=== PATIENT | male | born 1940 | race Caucasian/White ===

== ENCOUNTER 2016-12-11 05:43 | Observation (INO) | payer OTHER ==
[2016-12-05 09:59] LABS: % IMMATURE GRANULYOCYTES 0.4 % (0.0-1.1); ABSOLUTE IMMATURE GRANULOCYTES 0.02 10^3/uL (0.00-0.10); ADD DIFF? NO; ADD MORPH? NO; ADD SCAN? NO; ATYPICAL LYMPHOCYTE FLAG 10 (0-99); FRAGMENT RBC FLAG 0 (0-99); HEMOGLOBIN 16.1 g/dL (13.7-17.5); LEFT SHIFT FLG 0 (0-99); LIPEMIA HEMOLYSIS FLAG 90 (0-99); MEAN CELL HEMOGLOBIN 31.7 pg (27.9-34.1); MEAN CELL VOLUME 90.6 fL (81.5-99.8); MEAN PLATELET VOLUME 9.8 fL (8.7-11.7); PLATELET CLUMPS FLAG 0 (0-99); PLATELET COUNT 209 10^3/uL (150-400); RED BLOOD CELL COUNT 5.08 10^6/uL (4.40-6.38); RED CELL DISTRIBUTION WIDTH 13.5 % (11.5-15.2)
[2016-12-11] MEDS ORDERED: LIDOCAINE 1% 5 ML SDV ONE (05:59)
[2016-12-11] MEDS ORDERED: DEXAMETHASONE 10 MG/ML VIAL ONE (06:27)
[2016-12-11] MEDS ORDERED: BUPIVACAINE/EPI 0.25% 30 ML SDV ONE ×2 (06:56→09:29)
[2016-12-11] MEDS ORDERED: THROMBIN (RECOMBINANT) 5,000 UNIT VIAL TP ONE (06:56)
[2016-12-11] MEDS ORDERED: BACITRACIN 50,000 UNITS/10 ML SYR IRR ONE (06:56)
[2016-12-11] MEDS ORDERED: CEFAZOLIN 2 GM/DEXTROSE/100 ML BAG IV ONE (07:05)
[2016-12-11] MEDS ORDERED: MIDAZOLAM 2 MG/2 ML VIAL ONE (07:07)
[2016-12-11] MEDS ORDERED: fentaNYL 100 MCG/2 ML INJ ONE ×2 (07:23→10:31)
[2016-12-11] MEDS ORDERED: KETAMINE 100 MG/10 ML SYR IVP ONE (07:23)
[2016-12-11] MEDS ORDERED: REMIFENTANIL HCL 1 MG VIAL ONE (07:23)
[2016-12-11] MEDS ORDERED: PROPOFOL/EMULSION 500 MG/50 ML BOTTLE IV ONE (07:23)
[2016-12-11] MEDS ORDERED: PROPOFOL 200 MG/20 ML VIAL ONE (07:23)
[2016-12-11] MEDS ORDERED: SUCCINYLCHOLINE CHLORIDE*ANESTHESIA ONLY*200 MG/10 ML SYR IVP ONE (07:24)
[2016-12-11] MEDS ORDERED: DEXAMETHASONE 4 MG/ML VIAL ONE (07:24)
[2016-12-11] MEDS ORDERED: LIDOCAINE 2% 5 ML SDV ONE (07:24)
[2016-12-11] MEDS ORDERED: PHENYLEPHRINE 10 MG/ML SDV ONE (08:03)
[2016-12-11] MEDS ORDERED: epHEDrine SULFATE 10 MG/ML SYR ONE (08:09)
--- NOTE | 2016-12-11 09:53 | POSTOPPROG ---
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
--- NOTE | 2016-12-11 09:58 | NEUSURGPN ---
Date of Surgery: 12/11/16 Post Op Day: 0 Assessment/Plan: POST OP CHECK: doing well s/p C3-5 ACDF Plan: Soft collar. PAWAN to bulb suction advance per protocol DC home 4 hours post op if tolerating PO, Urinating, ambulating and with good oral pain control Subjective: lying in bed, comfortable, awake and alert. Objective: Vitals: BP: 117/76 HR 104 O2:97% Neuro MICHEL, Sens +LT follows commands Urinary Catheter in Place: No Neurosurgery Physical Exam - Vitals, I&O, Labs Laboratory Results 12/05/16 09:40 ICD10 Worksheet Patient Problems: Problems Problem Status Onset Primary localized osteoarthritis of left hip Acute
--- NOTE | 2016-12-11 10:18 | GOP ---
[f rep st] OPERATIVE REPORT DATE OF OPERATION: 12/11/2016 SURGEON: Diaz Portillo MD PLATE MOLDER: Wilbur Hernandez, PAC. ANESTHESIA: General endotracheal. PREOPERATIVE DIAGNOSIS: Intractable neck pain with severe C3-4 and C4-5 disk degeneration and centr al canal and neural foraminal encroachment, failed conservative care. POSTOPERATIVE DIAGNOSIS: Intractable neck pain with severe C3-4 and C4-5 disk degeneration and cent ral canal and neural foraminal encroachment, failed conservative care. PROCEDURE PERFORMED: Mini open exposure for C3-4 and C4-5 complete anterior cervical diskectomy and arthrodesis with 2 structural PEEK interbody spacers, local autograft, and demineralized bone matri x. Placement of CastleLoc-P LnK anterior cervical plates C3 through C5. Use of intraoperative micr oscopy and fluoroscopy. FINDINGS: ESTIMATED BLOOD LOSS: 50 cc. INDICATIONS: The patient is a 76-year-old man with intractable neck pain and severe multilevel disk degeneration and herniation with central canal neural foraminal encroachment. He presents now for surgical decompression and stabilization after failing conservative care. The patient understands t hat he does have arthritis throughout his neck, and there is no guarantee of resolution of his sympt oms, and he could even be worse. This was discussed prior to surgery. DESCRIPTION OF PROCEDURE: After informed consent was obtained, the patient was taken to the operati ng room and placed in the supine position with the head in the halter retractor system. Baseline in traoperative neuromonitoring signals were obtained. The anterior cervical region was prepped and dr aped in a sterile fashion. After fluoroscopic localization of the location of the correct levels, t he subcutaneous and intramuscular tissues were infiltrated with local anesthesia. A small horizonta l incision was created in a skin crease off to the left of the midline. This was carried through th e platysmal layer using the monopolar electrocautery and carried in the avascular plane between the sternocleidomastoid and carotid sheath laterally and the strap muscles, trachea, and esophagus media lly, down to the prevertebral fascia, which was carefully incised with Metzenbaum scissors. The C3- 4 and C4-5 interspaces were identified and re-verified using intraoperative fluoroscopy. The Weston distraction pins were then inserted, and under high-power microscopic visualization complete diskec tomies were performed at the C3-4 and C4-5 levels with preparation of the endplates and removal of t he posterior longitudinal ligament at the C3-4, level but not at the C4-5 level, where there was a l jacqueline degree of stenosis. After decompressing the central canal and neural foramina bilaterally at C3-4, the remaining endplates were carefully prepared and an appropriately sized structural PEEK int erbody spacer was packed with local autograft, and demineralized bone matrix was placed in the inter spaces under fluoroscopic image guidance. The distraction was removed and an appropriately sized Ln K CastleLoc-P anterior cervical plate was then placed and secured from C3 through C5, again under fl uoroscopic image guidance. Following re-verification of good positioning of the plate, screws, and interbody spacers, a drain was placed. The subcutaneous and intramuscular tissue were re-infiltrate d with local anesthesia, and the wound was closed in a layered fashion using interrupted Vicryl sutu res followed by Steri-Strips on the skin. COMPLICATIONS: None. CONDITION: The patient is currently in the process of being re-positioned for extubation. /[id number]/MODL
[2016-12-11] MEDS ORDERED: LACTULOSE 20 GM/30 ML UDCUP PO PRN (10:29)
[2016-12-11] MEDS ORDERED: BISACODYL 10 MG SUPP PR PRN (10:29)
[2016-12-11] MEDS ORDERED: MAGNESIUM HYDROXIDE 30 ML UDCUP PO PRN (10:29)
[2016-12-11] MEDS ORDERED: ONDANSETRON DISINTEGRATING 4 MG TAB PO PRN (10:29)
[2016-12-11] MEDS ORDERED: ONDANSETRON 4 MG/2 ML VIAL IVP PRN (10:29)
[2016-12-11] MEDS ORDERED: HYDROmorphONE/DILAUDID 1 MG/ML SYR IVP PRN (10:29)
[2016-12-11] MEDS ORDERED: ACETAMINOPHEN 325 MG TAB PO PRN (10:29)
[2016-12-11] MEDS ORDERED: HYDROCODONE/APAP 10/325 TAB PO PRN (10:29)
[2016-12-11] MEDS ORDERED: diphenhydrAMINE 25 MG CAP PO PRN (10:29)
[2016-12-11] MEDS ORDERED: METHOCARBAMOL 750 MG TAB PO PRN (10:29)
[2016-12-11] MEDS ORDERED: DIAZEPAM 10 MG/2 ML SYR IVP PRN (10:29)
[2016-12-11] MEDS ORDERED: NS W/ 20 KCl/L 1,000 ML IV SCH (10:30)
--- NOTE | 2016-12-11 10:36 | DX ---
Intraoperative Fluoroscopy History: Cervical fusion surgery Fluoroscopy time = 8.4 seconds Fluoroscopy dose = 0.42 mGy Findings : A single lateral intraoperative spot film at 9:36 AM demonstrates an anterior compression plate with transvertebral body screws and interbody bone plugs in excellent position between C3 and C5. Impression: Excellent intraoperative alignment.
[2016-12-11] MEDS ORDERED: METOPROLOL TARTRATE 5 MG/5 ML INJ ONE ×2 (12:36→13:02)
[2016-12-11] MEDS ORDERED: DIAZEPAM 10 MG/2 ML SYR ONE ×2 (12:40→13:01)
[2016-12-11] MEDS ORDERED: METOPROLOL TARTRATE 5 MG/5 ML INJ IV PRN (12:47)
[2016-12-11] MEDS: POLYETHYLENE GLYCOL 3350 17 GM PKT PO SCH ×2 (14:54→20:45)
[2016-12-11] MEDS: OXYCODONE/APAP 5/325 TAB PO PRN ×2 (15:38→20:43)
[2016-12-11] MEDS: DIAZEPAM 5 MG TAB PO PRN (20:42)
[2016-12-11] MEDS: FAMOTIDINE 20 MG TAB PO SCH (20:42)
[2016-12-11] MEDS: SENNOSIDES/DOCUSATE SODIUM TAB PO SCH (20:45)
[2016-12-11] MEDS ORDERED: FAMOTIDINE 20 MG/NACL 50 ML IV SCH (21:00)
[2016-12-11 23:29] VITALS: TEMP 98.2; O2SAT 92
[2016-12-12] MEDS: OXYCODONE/APAP 5/325 TAB PO PRN ×3 (02:23→10:44)
[2016-12-12] MEDS: DIAZEPAM 5 MG TAB PO PRN ×2 (02:26→10:44)
--- NOTE | 2016-12-12 08:32 | GPROG ---
[f rep st] PROGRESS NOTE NEUROSURGICAL PROGRESS NOTE DATE OF SERVICE: 12/12/2016 SUBJECTIVE: The patient is asleep in bed. He wakes easily and denies any significant pain. He is not having any new numbness, tingling, or weakness. He states it is difficult to sleep in the hospi rolando and is quite tired. OBJECTIVE: VITAL SIGNS: Blood pressure is 145/87, heart rate 72, temperature is 36.8, and O2 satur ation is 92% on room air. NEUROLOGIC: Patient is awake, alert, and oriented x4. He has equal and s ymmetric strength of the bilateral upper and lower extremities with normal sensation in all dermatom al distributions of the bilateral upper and lower extremities. His dressing is clean, dry, and intact. His PAWAN drain has put out 65 mL since surgery. LAB RESULTS: No new labs. IMPRESSION: This is a 76-year-old male, who is postop day #1, after undergoing a C3-4 and C4-5 ante rior cervical diskectomy and arthrodesis. He is tolerating his soft collar well. He has no new nirmal rologic changes and is doing well overall. PLAN: All the above issues were discussed with the patient today and at this time, we will advance his diet as tolerated to a soft mechanical diet. We will advance his activity as tolerated with phy sical therapy and occupational therapy. He will undergo x-rays of the cervical spine today. Once kin herring is tolerating food, urinating, ambulating, and pain control with pills, and cleared by PT, OT, and ST, he will be discharged to home. /[id number]/MODL
[2016-12-12 08:36] VITALS: BP 131/84; PULSE 67; RESP 16
[2016-12-12] MEDS: SENNOSIDES/DOCUSATE SODIUM TAB PO SCH (10:34)
[2016-12-12] MEDS: FAMOTIDINE 20 MG TAB PO SCH (10:34)
[2016-12-12] MEDS: POLYETHYLENE GLYCOL 3350 17 GM PKT PO SCH (10:41)
[2016-12-14] MEDS ORDERED: ENOXAPARIN 40 MG/0.4 ML SYR SC SCH (09:00)
== END 2016-12-12 13:57 | disposition home or self-care (01) ==
LOC: F3N 05:43 → INTOOBSV 05:43 → F3N 13:54
PROVIDERS: ADMIT Neurological Surgery; ATTEND Neurological Surgery
PROC: 0RT30ZZ Resection of Cervical Vertebral Disc, Open Approach (ICD-10-PCS; principal; 2016-12-11 07:15)
PROC: 0RG20A0 Fusion of 2 or more Cervical Vertebral Joints with Interbody Fusion Device, Anterior Approach, Anterior Column, Open Approach (ICD-10-PCS; principal; 2016-12-11 07:15)
PROC: BR101ZZ Fluoroscopy of Cervical Spine using Low Osmolar Contrast (ICD-10-PCS; principal; 2016-12-11 07:15)
PROC: 8E0WXBZ Computer Assisted Procedure of Trunk Region (ICD-10-PCS; principal; 2016-12-11 07:15)
DX: M48.02 Spinal stenosis, cervical region (principal); M50.821 Other cervical disc disorders at C4-C5 level; Z96.649 Presence of unspecified artificial hip joint
CPT/HCPCS: 22551; 22552; 72040; 76001; 97161; 97165; C1713; G0378; J0330; J0690; J1100; J2250; J2370; J2704; J3010

== ENCOUNTER 2016-12-13 17:32 | Inpatient (IN) | payer OTHER ==
--- NOTE | 2016-12-13 18:15 | EDPHY ---
H & P Time Seen by Provider: 12/13/16 18:05 HPI/ROS: Chief complaint. Postoperative shortness of breath HPI. 76-year-old male presents with shortness of breath and difficulty swallowing. Also somewhat hypoxic. He is day 2 after C3/C4, C4/5 partial fusion and anterior cervical diskectomy and arthrodesis. Has peak interbody spacers placed. He was discharged home yesterday. He is having a difficult time taking fluids and medications as well as swallowing secretions. No fever. Speech is relatively normal though somewhat hoarse. No coughing ROS Constitutional. no fever/chills, no weakness Eyes. no problems with vision ENT. Difficulty swallowing and handling secretions Cardiovascular. no chest pain Respiratory. Slight shortness of breath Abdominal. no abdominal pain, no nausea/vomiting, no diarrhea . no problems urinating MS. no calf pain/swelling, no neck/back pain, no joint pain Skin. no rash Lymph. no swollen glands Neuro. no headache, no dizziness, no difficulty walking or with speech Past Medical/Surgical History: Chronic neck pain, total hip replacement Social History: , nonsmoker, no alcohol Smoking Status: Former smoker Physical Exam: General Appearance: Alert well-developed male moderate distress vital signs are stable. Cervical collar is in place. O2 saturation 88% on room air Eyes: Pupils equal and round no pallor or injection. ENT, pharynx without obvious injection. There is no stridor. Respiratory: There are no retractions, lungs are clear to auscultation. Cardiovascular: Regular rate and rhythm. Gastrointestinal: Abdomen is soft and nontender, no masses, bowel sounds normal. Neurological: Awake and alert, sensory and motor exams grossly normal. Skin: Warm and dry, no rashes. Musculoskeletal: Neck is supple nontender. Extremities symmetrical, full range of motion. Psychiatric: Patient is oriented X 3, there is no agitation. Constitutional: Initial Vital Signs Temperature (C) 37.2 C 12/13/16 17:52 Heart Rate 78 12/13/16 17:52 Respiratory Rate 18 12/13/16 17:52 Blood Pressure 167/90 H 17 17:52 O2 Sat (%) 88 L 12/13/16 17:52 O2 Delivery Mode Nasal Cannula O2 (L/minute) 2 Allergies/Adverse Reactions: piroxicam [From Feldene] Allergy (Unknown, Verified 02/07/16 09:59) Sulfa (Sulfonamide Antibiotics) Allergy (Unknown, Verified 11/30/16 11:25) Rash cat dander Allergy (Verified 11/30/16 11:25) house dust Allergy (Verified 11/30/16 11:25) tetracycline Allergy (Verified 12/04/16 11:58) Home Medications: Medication Instructions Recorded Citalopram [CeleXA 20 MG] 20 mg PO DAILY 11/30/16 Acetaminophen [Tylenol 325mg (*)] 325 - 650 mg PO Q4HRS PRN #0 tab 12/12/16 Diazepam [Valium 5 MG (*)] 2.5 - 5 mg PO QID PRN #60 tab 12/12/16 Methocarbamol [Robaxin 750 mg (*)] 750 mg PO QID PRN #60 tab 12/12/16 HYDROmorphone HCL [Dilaudid 2 mg 2 mg PO Q4 PRN 12/13/16 (*)] Medical Decision Making - Diagnostics Imaging: Imaging study show a a thickened prevertebral stripe anterior to C4, C5. It is compressing the trachea somewhat on the lateral soft tissue neck. The prevertebral soft tissue measured 8 mm yesterday and tonight 23 mm. There is questionable retrocardiac pneumonia on chest x-ray. Findings are discussed with Dr. Nicolas Procedures: IV normal saline, oxygen ED Course/Re-evaluation: Consultation with Neurosurgery who will see the patient in the emergency department Dr. Hoffmann sees the patient in the emergency department. He and I discussed imaging studies including the prevertebral thickening going from 823 mm since yesterday. We discussed the retrocardiac pneumonia as well. On re-evaluation the patient is stable. He requests medication for anxiety which is given. Patient and family and I discussed imaging and lab results. We discussed treatment plan including need for admission and possible surgery. They expressed understanding and agreement Differential Diagnosis: I considered pneumonia, soft tissue swelling secondary to his recent surgery which is what appears that the patient has. I have considered airway embarrassment. - Data Points Laboratory Results: Laboratory Results 12/13/16 18:51 12/13/16 18:51 12/13/16 12/13/16 18:51 18:51 WBC 8.21 10^3/uL 10^3/uL (3.80-9.50) RBC 4.54 10^6/uL 10^6/uL (4.40-6.38) Hgb 14.5 g/dL g/dL (13.7-17.5) Hct 42.4 % % (40.0-51.0) MCV 93.4 fL fL (81.5-99.8) MCH 31.9 pg pg (27.9-34.1) MCHC 34.2 g/dL g/dL (32.4-36.7) RDW 13.9 % % (11.5-15.2) Plt Count 173 10^3/uL 10^3/uL (150-400) MPV 9.9 fL fL (8.7-11.7) Neut % (Auto) 67.0 % % (39.3-74.2) Lymph % (Auto) 14.5 % L % (15.0-45.0) Preston % (Auto) 16.6 % H % (4.5-13.0) Eos % (Auto) 1.0 % % (0.6-7.6) Baso % (Auto) 0.5 % % (0.3-1.7) Nucleat RBC Rel Count 0.0 % % (0.0-0.2) Absolute Neuts (auto) 5.51 10^3/uL 10^3/uL (1.70-6.50) Absolute Lymphs (auto) 1.19 10^3/uL 10^3/uL (1.00-3.00) Absolute Monos (auto) 1.36 10^3/uL H 10^3/uL (0.30-0.80) Absolute Eos (auto) 0.08 10^3/uL 10^3/uL (0.03-0.40) Absolute Basos (auto) 0.04 10^3/uL 10^3/uL (0.02-0.10) Absolute Nucleated RBC 0.00 10^3/uL 10^3/uL (0-0.01) Immature Gran % 0.4 % % (0.0-1.1) Immature Gran # 0.03 10^3/uL 10^3/uL (0.00-0.10) Sodium 142 mEq/L mEq/L (134-144) Potassium 4.3 mEq/L mEq/L (3.5-5.2) Chloride 104 mEq/L mEq/L (97-110) Carbon Dioxide 28 mEq/l mEq/l (22-31) Anion Gap 10 mEq/L mEq/L (8-16) BUN 24 mg/dL H mg/dL (7-23) Creatinine 0.9 mg/dL mg/dL (0.7-1.3) Estimated GFR > 60 Glucose 100 mg/dL mg/dL (70-100) Calcium 9.1 mg/dL mg/dL (8.5-10.4) Medications Given: Discontinued Medications Dexamethasone (Decadron Injection) 10 mg IVP EDNOW ONE Stop: 12/13/16 19:41 Last Admin: 12/13/16 19:45 Dose: 10 mg Sodium Chloride (Ns) 1,000 mls @ 0 mls/hr IV ONCE ONE PRN Reason: Wide Open Stop: 12/13/16 18:42 Last Admin: 12/13/16 18:44 Dose: 1,000 mls Lorazepam (Ativan Injection) 1 mg IVP EDNOW ONE Stop: 12/13/16 19:56 Last Admin: 12/13/16 20:07 Dose: 1 mg Departure - Departure Disposition: [facility] Acute Clinical Impression: Postoperative throat swelling, Hypoxia Condition: Fair
[2016-12-13] MEDS ORDERED: NS 1,000 ML IV ONE (18:41)
[2016-12-13 18:59] LABS: % IMMATURE GRANULYOCYTES 0.4 % (0.0-1.1); ABSOLUTE IMMATURE GRANULOCYTES 0.03 10^3/uL (0.00-0.10); ADD DIFF? NO; ADD MORPH? NO; ADD SCAN? NO; ATYPICAL LYMPHOCYTE FLAG 0 (0-99); FRAGMENT RBC FLAG 0 (0-99); HEMATOCRIT 42.4 % (40.0-51.0); HEMOGLOBIN 14.5 g/dL (13.7-17.5); LEFT SHIFT FLG 0 (0-99); LIPEMIA HEMOLYSIS FLAG 90 (0-99); MEAN CELL HEMOGLOBIN 31.9 pg (27.9-34.1); MEAN CELL HEMOGLOBIN CONCENTR. 34.2 g/dL (32.4-36.7); MEAN CELL VOLUME 93.4 fL (81.5-99.8); MEAN PLATELET VOLUME 9.9 fL (8.7-11.7); PLATELET CLUMPS FLAG 0 (0-99); PLATELET COUNT 173 10^3/uL (150-400); RED BLOOD CELL COUNT 4.54 10^6/uL (4.40-6.38); RED CELL DISTRIBUTION WIDTH 13.9 % (11.5-15.2)
[2016-12-13 19:00] LABS: ANION GAP 10 mEq/L (8-16); CALCIUM 9.1 mg/dL (8.5-10.4); CARBON DIOXIDE 28 mEq/l (22-31); CHLORIDE 104 mEq/L (97-110); CREATININE 0.9 mg/dL (0.7-1.3); GLOMERULAR FILTRATION RATE > 60; GLUCOSE 100 mg/dL (70-100); POTASSIUM 4.3 mEq/L (3.5-5.2); SODIUM 142 mEq/L (134-144)
[2016-12-13] MEDS ORDERED: HYDROmorphONE/DILAUDID 1 MG/ML SYR IVP PRN (19:22)
[2016-12-13] MEDS ORDERED: ONDANSETRON 4 MG/2 ML VIAL IVP PRN (19:22)
[2016-12-13] MEDS ORDERED: DEXAMETHASONE 10 MG/ML VIAL IVP ONE (19:40)
[2016-12-13] MEDS ORDERED: LORazepam 2 MG/ML INJ IVP ONE (19:55)
[2016-12-13] MEDS: NS W/ 20 KCl/L 1,000 ML IV SCH (21:29)
--- NOTE | 2016-12-13 22:29 | GHP ---
[f rep st] HISTORY AND PHYSICAL DATE OF ADMISSION: 12/13/2016 CONSULTING SERVICE: Emergency room medicine Blayne Kwan MD. CONSULTING AND ADMITTING PHYSICIAN: Sergo Hoffmann MD. CHIEF COMPLAINT: Difficulty swallowing after anterior cervical diskectomy and fusion. HISTORY OF PRESENT ILLNESS: The patient is a pleasant 76-year-old gentleman in the emergency department with his and 2 daughters who is 2 days out from a C3-4, C4-5 ACDF [address] my partner Dr[address] Portillo. The patient was discharged from the hospital yesterday, and today began having difficulty swallowing his own secretions. Unable to take any p.o., unable to take medications with a hoarse voice quality. He has called our office today multiple times and ultimately decided to seek treatment in the [facility] Emergency Department. He has no neurological complaints or other concerning findings on exam. PAST MEDICAL HISTORY: Per HPI. PAST SURGICAL HISTORY: Per HPI. MEDICATIONS: At home, Celexa, Tylenol, Valium, Robaxin, and Dilaudid. ALLERGIES: Piroxicam, sulfa, cat dander, house dust, tetracycline. SOCIAL HISTORY: . Denies tobacco, alcohol, or drug abuse. He did use to smoke remotely. FAMILY HISTORY: Noncontributory in this particular instance. REVIEW OF SYMPTOMS: Ten points reviewed and otherwise negative other than stated in the HPI. PHYSICAL EXAMINATION: VITAL SIGNS: Blood pressure 167/90, heart rate 78, respiratory rate 18, saturations 88% on room air up to 93% on 2 L nasal cannula , temperature 37.2 degrees. NEUROLOGIC: Awake, alert, and oriented x3, appears stated age, no acute distress, but is having trouble swallowing using a cup to spit out his own secretions. Moves all extremities 5/5 to command. Sensory exam intact. No abnormal reflexes. Gait deferred. LABORATORY DATA: White blood cell count 8.21, hemoglobin 14.5, platelets 173. Sodium 142, potassium 4.3, BUN/creatinine 24 an 0.9, glucose 100. IMAGING: There is no imaging for review at this time. IMPRESSION AND PLAN: The patient is a pleasant 76-year-old gentleman who is 2 days out from a C3-4, C4-5 anterior cervical discectomy and fusion by my partner Dr. Portillo. He is having some significant postoperative dysphagia, unable to take p.o. or his medication. Will admit him for IV fluid hydration, 10 of IV Decadron x1 now, 4 q.8 tomorrow and 2 q.8 the day after. /[id number]/MODL MTDD
[2016-12-14] MEDS: DEXAMETHASONE 4 MG/ML VIAL IVP SCH ×3 (05:12→22:12)
[2016-12-14 05:49] LABS: ALANINE AMINOTRANSFERASE 30 IU/L (21-72); ALBUMIN 4.1 g/dL (3.5-5.0); ALKALINE PHOSPHATASE 80 IU/L (38-126); ANION GAP 9 mEq/L (8-16); ASPARTATE AMINOTRANSFERASE 24 IU/L (17-59); BILIRUBIN,TOTAL 1.3 mg/dL (0.1-1.4); CALCIUM 9.2 mg/dL (8.5-10.4); CARBON DIOXIDE 24 mEq/l (22-31); CHLORIDE 106 mEq/L (97-110); CREATININE 0.7 mg/dL (0.7-1.3); GLOMERULAR FILTRATION RATE > 60; GLUCOSE 127 mg/dL (70-100); POTASSIUM 4.3 mEq/L (3.5-5.2); SODIUM 139 mEq/L (134-144); TOTAL PROTEIN 7.3 g/dL (6.3-8.2)
[2016-12-14] MEDS: ENOXAPARIN 40 MG/0.4 ML SYR SC SCH (07:59)
[2016-12-14] MEDS: DIAZEPAM 10 MG/2 ML SYR IVP PRN ×2 (07:59→15:16)
--- NOTE | 2016-12-14 09:35 | SOAPPROG ---
SOAP Progress Note Assessment/Plan: Assessment: 76 yo male POD #3 s/p C3-6 ACDF Readmitted for post op dehydration, pain control and dysphagia Doing better this AM since receiving hydration and Decadron. Pt is eager to leave the hospital, but still has some difficulty managing his secretions Plan: Decadron 4mg Q8 today and 2 q8 tomorrow, then stop. Speech eval PT eval pain control IV hydration discussed with Dr. Hoffmann 12/14/16 09:32 12/14/16 09:35 Subjective: standing at beside with RN. He states he's feeling much better today, but still has difficulty with managing secretions. Objective: Vital Signs Temp Pulse Resp BP Pulse Ox 36.6 C 71 16 177/105 H 97 12/14/16 07:34 12/14/16 07:34 12/14/16 07:34 12/14/16 07:34 12/14/16 07:34 Laboratory Results 12/14/16 04:18 12/13/16 12/14/16 12/15/16 05:59 05:59 05:59 Intake Total 1400 Output Total 1500 Balance -100 ICD10 Worksheet Patient Problems: Problems Problem Status Onset Hypoxia Acute Primary localized osteoarthritis of left hip Acute
[2016-12-14] MEDS ORDERED: METHOCARBAMOL 750 MG TAB PO PRN (10:50)
[2016-12-14] MEDS: DIAZEPAM 5 MG TAB PO PRN (12:06)
[2016-12-14] MEDS: NS W/ 20 KCl/L 1,000 ML IV SCH (18:25)
[2016-12-14] MEDS: HYDROmorphONE/DILAUDID 2 MG TAB PO PRN (21:02)
[2016-12-14] MEDS: CEPACOL LOZENGE PO PRN (21:03)
[2016-12-15] MEDS: DIAZEPAM 5 MG TAB PO PRN (01:14)
[2016-12-15] MEDS: HYDROmorphONE/DILAUDID 2 MG TAB PO PRN ×2 (01:14→07:36)
[2016-12-15] MEDS: CEPACOL LOZENGE PO PRN ×2 (01:17→07:36)
[2016-12-15 04:17] VITALS: RESP 16
[2016-12-15] MEDS ORDERED: DEXAMETHASONE 4 MG/ML VIAL IVP SCH (06:00)
--- NOTE | 2016-12-15 08:40 | NEUSURGPN ---
Assessment/Plan: 76 yo male POD #4 s/p C3-6 ACDF Readmitted for post op dehydration, pain control and dysphagia- improving, able to get down soft foods Doing better this AM since receiving hydration and Decadron. Pt is eager to leave the hospital- ok to discharge later this morning Pt discussed with Dr. Vásquez Subjective: Patient feeling much better, able to eat applesauce without difficult, no arm pain. Objective: NAD, VSS Walking around the hallway Neck soft, supple without induration- soft collar BUE 5/5= BLE 5/5= Incision c/d/i-dressed - Physician Discussed Patient with : [facility] Neurosurgery Physical Exam - Vitals, I&O, Labs I and O 12/14/16 12/15/16 12/16/16 05:59 05:59 05:59 Intake Total 1400 625 300 Output Total 1500 250 Balance -100 375 300 Weight 86.183 kg Intake: Oral (ml) 625 IV Infused (ml) 1400 0 300 NS W/ 20 KCl/L 1,000 ml @ 400 0 300 100 mls/hr IV CONT JARROD Rx#:[id number] Output: Urine (ml) 1500 250 Toilet 950 Urinal 550 250 Other: Intake Quantity Yes Sufficient Number of Voids 1 Toilet 2 Urinal 4 Vital Signs Temp Pulse Resp BP Pulse Ox 36.4 C 61 16 137/79 H 92 12/15/16 07:14 12/15/16 07:14 12/15/16 07:14 12/15/16 07:14 12/15/16 07:14 Laboratory Results 12/14/16 04:18 ICD10 Worksheet Patient Problems: Problems Problem Status Onset Hypoxia Acute Primary localized osteoarthritis of left hip Acute
[2016-12-15] MEDS ORDERED: CITALOPRAM 20 MG TAB PO SCH (09:00)
[2016-12-15] MEDS: ENOXAPARIN 40 MG/0.4 ML SYR SC SCH (09:47)
[2016-12-15 11:33] VITALS: BP 153/71; PULSE 64; TEMP 98.3; O2SAT 93
== END 2016-12-15 11:46 | disposition home or self-care (01) | DRG 641 ==
LOC: INTOOBSV 19:55 → OBSVTOIN 19:55 → F3N 21:00
PROVIDERS: ADMIT Neurological Surgery; ATTEND Neurological Surgery
DX: E86.0 Dehydration (principal); R13.10 Dysphagia, unspecified; Z98.1 Arthrodesis status; Z87.891 Personal history of nicotine dependence; R09.02 Hypoxemia
CPT/HCPCS: 92526-GN; 92610-GN; 97161-GP; 97165-GO; G8978-GP-CI; G8979-GP-CI; G8980-GP-CI; J1100; J1650

== ENCOUNTER → 2017-02-13 | Outpatient (CLI) | payer OTHER | LOC: FIMAGING 10:07 | PROVIDERS: ATTEND Physician Assistant Surgical | DX: M54.2 Cervicalgia (principal); Z98.1 Arthrodesis status ==

== ENCOUNTER → 2017-03-31 | Outpatient (CLI) | payer OTHER | LOC: FIMAGING 13:44 | PROVIDERS: ATTEND Physician Assistant Surgical | DX: Z09 Encounter for follow-up examination after completed treatment for conditions other than malignant neoplasm (principal); Z98.1 Arthrodesis status ==

== ENCOUNTER → 2017-06-17 | Outpatient (CLI) | payer OTHER | LOC: FIMAGING 15:10 | PROVIDERS: ATTEND Physician Assistant Surgical | DX: Z09 Encounter for follow-up examination after completed treatment for conditions other than malignant neoplasm (principal); Z98.1 Arthrodesis status ==

== ENCOUNTER 2017-06-25 22:03 | Emergency (ER) | payer OTHER ==
[2017-06-25 22:07] VITALS: RESP 17; TEMP 98.1
--- NOTE | 2017-06-25 23:01 | EDPHY ---
H & P Stated Complaint: fall, bilateral leg injury Time Seen by Provider: 06/25/17 22:33 HPI/ROS: CHIEF COMPLAINT: Abrasions HISTORY OF PRESENT ILLNESS: The patient is a 76-year-old man who tripped over the coffee table while he was walking through his house in the dark. He has several abrasions to his shins on both legs and a small hematoma to his right tipton. He has been ambulatory. He is not concerned about fractures. He denies other injuries to his upper body or head. REVIEW OF SYSTEMS: Constitutional: denies: chills, fever, recent illness, recent injury EENTM: denies: blurred vision, double vision, nose congestion Respiratory: denies: cough, shortness of breath Cardiac: denies: chest pain, irregular heart rate, lightheadedness, palpitations Gastrointestinal/Abdominal: denies: abdominal pain, diarrhea, nausea, vomiting, blood streaked stools Genitourinary: denies: dysuria, frequency, hematuria, pain Musculoskeletal: denies: joint pain, muscle pain Skin: See HPI Neurological: denies: headache, numbness, paresthesia, tingling, dizziness, weakness Hematologic/Lymphatic: denies: blood clots, easy bleeding, easy bruising Immunologic/allergic: denies: HIV/AIDS, transplant EXAM: GENERAL: Well-appearing, well-nourished and in no acute distress. HEAD: Atraumatic, normocephalic. EYES: Pupils equal round and reactive to light, extraocular movements intact, sclera anicteric, conjunctiva are normal. ENT: TMs normal, nares patent, oropharynx clear without exudates. Moist mucous membranes. NECK: Normal range of motion, supple without lymphadenopathy or JVD. LUNGS: Breath sounds clear to auscultation bilaterally and equal. No wheezes rales or rhonchi. HEART: Regular rate and rhythm without murmurs, rubs or gallops. ABDOMEN: Soft, nontender, normoactive bowel sounds. No guarding, no rebound. No masses appreciated. BACK: No CVA tenderness, no spinal tenderness, step-offs or deformities EXTREMITIES: Left tipton abrasions, no deep laceration. No deformity. Right tipton abrasion and small hematoma, ambulatory. No significant deformity. Normal pulses distally no pain with flexion or extension of ankle. NEUROLOGICAL: Cranial nerves II through XII grossly intact. Normal speech, normal gait. 5/5 strength, normal movement in all extremities, normal sensation PSYCH: Normal mood, normal affect. SKIN: Warm, dry, normal turgor, no visible rashes or lesions. Source: Patient Exam Limitations: No limitations - Personal History Current Tetanus/Diphtheria Vaccine: Yes Tetanus Vaccine Date: 3 years ago - Medical/Surgical History Hx Asthma: No Hx Chronic Respiratory Disease: No Hx Diabetes: No Hx Cardiac Disease: No Hx Renal Disease: No Hx Cirrhosis: No Hx Alcoholism: No Hx HIV/AIDS: No Hx Splenectomy or Spleen Trauma: No Other PMH: PSHx: left total hip replacement, C3-5 ant. PMHx: - Social History Smoking Status: Former smoker Alcohol Use: Sober Drug Use: None Constitutional: Initial Vital Signs Temperature (C) 36.7 C 06/25/17 22:04 Heart Rate 66 06/25/17 22:04 Respiratory Rate 17 06/25/17 22:04 Blood Pressure 159/77 H 06/25/17 22:04 O2 Sat (%) 92 06/25/17 22:04 O2 Delivery Mode Room Air Allergies/Adverse Reactions: piroxicam [From Feldene] Allergy (Unknown, Verified 02/07/16 09:59) Sulfa (Sulfonamide Antibiotics) Allergy (Unknown, Verified 11/30/16 11:25) Rash cat dander Allergy (Verified 11/30/16 11:25) house dust Allergy (Verified 11/30/16 11:25) tetracycline Allergy (Verified 12/04/16 11:58) Home Medications: Medication Instructions Recorded Citalopram [CeleXA 20 MG] 20 mg PO DAILY 11/30/16 Acetaminophen [Tylenol 325mg (*)] 325 - 650 mg PO Q4HRS PRN #0 tab 12/12/16 Diazepam [Valium 5 MG (*)] 2.5 - 5 mg PO QID PRN #60 tab 12/12/16 Methocarbamol [Robaxin 750 mg (*)] 750 mg PO QID PRN #60 tab 12/12/16 HYDROmorphone HCL [Dilaudid 2 mg 2 mg PO Q4 PRN 12/13/16 (*)] Benzocaine/Menthol 09/02 [Cepacol 1 ea PO Q2 PRN #0 lozenge 12/15/16 Lozenge] Cyclobenzaprine [Flexeril 10 MG 10 mg PO TID PRN #20 tab 12/15/16 (*)] Dexamethasone [Decadron 4mg/ml inj 2 mg IVP Q8H #0 vial 12/15/16 (*)] Hydrocodone/APAP 5/325 [[place] 1 - 2 tab PO Q6H PRN #20 tab 12/15/16 5/325 (*)] Medical Decision Making ED Course/Re-evaluation: Patient is admitted. He declines x-rays. His abrasions were cleaned and dressed. They did require sutures. He asked about compartment syndrome and we discussed wrist what for. This is very low risk for compartment syndrome the currently no symptoms consistent with consent. No symptoms consistent with fracture. Differential Diagnosis: Partial list of the Differential diagnosis considered include but were not limited to; abrasion, hematoma and although unlikely based on the history and physical exam, I also considered fracture, vascular injury, nerve injury. I discussed these differential diagnoses and the plan with the patient as well as the usual and expected course. The patient understands that the diagnosis is provisional and that in medicine we are not always correct and that further workup is often warranted. Usual and customary warnings were given. All of the patient's questions were answered. The patient was instructed to return to the emergency department should the symptoms at all worsen or return, otherwise to followup with the physician as we discussed. Departure - Departure Disposition: Home, Routine, Self-Care Clinical Impression: Leg abrasion, non-infected, Hematoma Condition: Fair Instructions: Abrasion (ED), Hematoma (ED) Referrals: Taiwo Islas MD [Primary Care Provider] - As per Instructions
[2017-06-25 23:45] VITALS: BP 151/75; PULSE 58; O2SAT 94
[2017-06-26] MEDS ORDERED: IOPAMIDOL (ISOVUE-300) 100 ML BTL ONE (15:05)
== END 2017-06-25 23:40 | disposition home or self-care (01) ==
DX: S80.11XA Contusion of right lower leg, initial encounter (principal); S80.811A Abrasion, right lower leg, initial encounter; S80.812A Abrasion, left lower leg, initial encounter; Z87.891 Personal history of nicotine dependence; W01.0XXA Fall on same level from slipping, tripping and stumbling without subsequent striking against object, initial encounter; Y92.009 Unspecified place in unspecified non-institutional (private) residence as the place of occurrence of the external cause; Y99.8 Other external cause status; Y93.01 Activity, walking, marching and hiking
CPT/HCPCS: Q9967

== ENCOUNTER 2017-06-26 12:42 | Day surgery (SDC) | payer OTHER ==
--- NOTE | 2017-06-26 14:26 | EDPHY ---
H & P Stated Complaint: LEG PAIN Source: Patient Exam Limitations: No limitations - Personal History Tetanus Vaccine Date: 3 years ago - Medical/Surgical History Hx Asthma: No Hx Chronic Respiratory Disease: No Hx Diabetes: No Hx Cardiac Disease: No Hx Renal Disease: No Hx Cirrhosis: No Hx Alcoholism: No Hx HIV/AIDS: No Hx Splenectomy or Spleen Trauma: No Other PMH: PSHx: left total hip replacement, C3-5 ant. PMHx: - Social History Smoking Status: Former smoker <Mir Johns - Last Filed: 06/26/17 16:25> <China Madison - Last Filed: 06/26/17 17:39> Time Seen by Provider: 06/26/17 14:05 HPI/ROS: CHIEF COMPLAINT: Right leg pain and swelling HISTORY OF PRESENT ILLNESS: The patient presents to the ED with increased pain and swelling in his right leg. The patient was seen in the emergency department last night after he stumbled and fell. He was noted to have abrasions to his bilateral anterior lower extremities. The patient did not have x-rays performed at that point time. The patient was discharged home and followed up with his primary care provider Bogdan Islas today. The patient reports marked increasing pain, swelling and painful movement. REVIEW OF SYSTEMS: A comprehensive 10 point review of systems is otherwise negative aside from elements mentioned in the history of present illness. (Mir Johns) - Physical Exam Exam: General Appearance: Alert, mild discomfort Eyes: Pupils equal and round no pallor or injection ENT, Mouth: Mucous membranes moist Respiratory: There are no retractions, lungs are clear to auscultation Cardiovascular: Regular rate and rhythm Gastrointestinal: Abdomen is soft and nontender, no masses, bowel sounds normal Neurological: A&O, normal motor function, normal sensory exam, normal cranial nerves Skin: Superficial abrasions bilateral lower extremities over the [place] Musculoskeletal: Neck is supple nontender Extremities: Marked asymmetric calf tenderness and swelling noted to the right lower extremity, tenderness over the right posterior calf medial greater than lateral. 2+ dorsalis pedis and posterior tibial pulses (Mir Johns) Constitutional: Initial Vital Signs Temperature (C) 36.8 C 06/26/17 12:43 Heart Rate 70 06/26/17 12:43 Respiratory Rate 16 06/26/17 12:43 Blood Pressure 147/96 H 06/26/17 12:43 O2 Sat (%) 93 06/26/17 12:43 O2 Delivery Mode Room Air Allergies/Adverse Reactions: piroxicam [From Feldene] Allergy (Unknown, Verified 02/07/16 09:59) Sulfa (Sulfonamide Antibiotics) Allergy (Unknown, Verified 11/30/16 11:25) Rash cat dander Allergy (Verified 11/30/16 11:25) house dust Allergy (Verified 11/30/16 11:25) tetracycline Allergy (Verified 12/04/16 11:58) Home Medications: Medication Instructions Recorded Citalopram [CeleXA 20 MG] 20 mg PO DAILY 11/30/16 Acetaminophen [Tylenol 325mg (*)] 325 - 650 mg PO Q4HRS PRN #0 tab 12/12/16 Diazepam [Valium 5 MG (*)] 2.5 - 5 mg PO QID PRN #60 tab 12/12/16 Methocarbamol [Robaxin 750 mg (*)] 750 mg PO QID PRN #60 tab 12/12/16 HYDROmorphone HCL [Dilaudid 2 mg 2 mg PO Q4 PRN 12/13/16 (*)] Benzocaine/Menthol 09/02 [Cepacol 1 ea PO Q2 PRN #0 lozenge 12/15/16 Lozenge] Cyclobenzaprine [Flexeril 10 MG 10 mg PO TID PRN #20 tab 12/15/16 (*)] Dexamethasone [Decadron 4mg/ml inj 2 mg IVP Q8H #0 vial 12/15/16 (*)] Hydrocodone/APAP 5/325 [[place] 1 - 2 tab PO Q6H PRN #20 tab 12/15/16 5/325 (*)] Medical Decision Making <Mir Johns - Last Filed: 06/26/17 16:25> Consult/Admit Bed Type: Dr Nguyen, Med Surg admit. Dr Roberts, ortho consult <China Madison - Last Filed: 06/26/17 17:39> - Diagnostics Imaging Results: Imaging Impressions Tibia/Fibula X-Ray 06/26/17 14:04 Impression: 1. Soft tissue swelling anterior to the mid tibia corresponding to hematoma. 2. Degenerative changes about the knee joint and ankle joint. 3. Lucent line along the posterior aspect of the tibial plateau on the lateral view that could just represent overlapping shadows. If the patient is symptomatic in this region then consider additional right knee series as clinically directed. Findings discussed with Mir Johns M.D. at 14:45 hour, 06/26/2017. Extremity CT 06/26/17 14:53 Impression: 1. Moderate-sized hematoma posterior medial right calf positioned adjacent to the fascia of the underlying musculature without evidence of extension into the musculature. 2. No underlying fracture. Findings discussed with Mir Johns M.D. at 15:50 hour, 06/26/2017. ED Course/Re-evaluation: The patient presents to the ED for evaluation of traumatic right leg pain and swelling. The patient does have marked tenderness and firmness noted in his posterior compartment. The patient does have a 2+ dorsalis pedis and posterior tibial pulse. The patient does have passive range of motion of his right foot with minimal discomfort at full flexion. The patient was taken for an x-ray of the tib-fib which demonstrates no evidence of an obvious fracture by my interpretation. The patient was taken for a subsequent CT scan of the extremity which does demonstrated fairly large hematoma in the extremity. The patient did undergo a compartment pressure measurements performed by myself. I measured both the medial and lateral aspects of the posterior compartment. The patient's medial compartment pressure was 50 (which certainly could have been in the hematoma) and the patient's lateral compartment pressure was 34. The patient's extremity was elevated in the emergency department. He was kept NPO. Consultation was made with Dr. Delonte Roberts from Orthopedic surgery who will evaluate the patient for possible compartment syndrome and fasciotomy. The patient will be turned over to Dr. China Madison at 4:30 p.m.. (Mir Johns) I assumed care of this patient from Dr. Johns at 4:30 p.m.. Patient was seen and evaluated by Dr. Roberts in the emergency department. Plan is to take patient to the operating room for hematoma evacuation, with preparations for a fasciotomy if need be. Patient will be admitted to the hospitalist service. Course discussed with Dr. Roberts as well as Dr. Radha Monaco. Patient's pain has been well controlled. (China Madison) Differential Diagnosis: Differential diagnosis considered includes compartment syndrome, leg hematoma, neurovascular injury (Mir Johns) - Data Points Laboratory Results: Laboratory Results 06/26/17 14:50 06/26/17 14:50 06/26/17 06/26/17 06/26/17 14:50 14:50 14:50 WBC 8.52 10^3/uL 10^3/uL (3.80-9.50) RBC 4.64 10^6/uL 10^6/uL (4.40-6.38) Hgb 14.7 g/dL g/dL (13.7-17.5) POC Hgb Hct 43.0 % % (40.0-51.0) POC Hct MCV 92.7 fL fL (81.5-99.8) MCH 31.7 pg pg (27.9-34.1) MCHC 34.2 g/dL g/dL (32.4-36.7) RDW 13.6 % % (11.5-15.2) Plt Count 225 10^3/uL 10^3/uL (150-400) MPV 10.4 fL fL (8.7-11.7) Neut % (Auto) 76.0 % H % (39.3-74.2) Lymph % (Auto) 10.8 % L % (15.0-45.0) [place] % (Auto) 10.8 % % (4.5-13.0) Eos % (Auto) 1.3 % % (0.6-7.6) Baso % (Auto) 0.7 % % (0.3-1.7) Nucleat RBC Rel Count 0.0 % % (0.0-0.2) Absolute Neuts (auto) 6.48 10^3/uL 10^3/uL (1.70-6.50) Absolute Lymphs (auto) 0.92 10^3/uL L 10^3/uL (1.00-3.00) Absolute Monos (auto) 0.92 10^3/uL H 10^3/uL (0.30-0.80) Absolute Eos (auto) 0.11 10^3/uL 10^3/uL (0.03-0.40) Absolute Basos (auto) 0.06 10^3/uL 10^3/uL (0.02-0.10) Absolute Nucleated RBC 0.00 10^3/uL 10^3/uL (0-0.01) Immature Gran % 0.4 % % (0.0-1.1) Immature Gran # 0.03 10^3/uL 10^3/uL (0.00-0.10) PT 13.6 SEC SEC (12.0-15.0) INR 1.05 (0.83-1.16) POC Sodium Sodium 141 mEq/L mEq/L (134-144) POC Potassium Potassium 4.3 mEq/L mEq/L (3.5-5.2) POC Chloride Chloride 104 mEq/L mEq/L (97-110) Carbon Dioxide 27 mEq/l mEq/l (22-31) Anion Gap 10 mEq/L mEq/L (8-16) POC BUN BUN 30 mg/dL H mg/dL (7-23) Creatinine 0.9 mg/dL mg/dL (0.7-1.3) POC Creatinine Estimated GFR > 60 Glucose 113 mg/dL H mg/dL (70-100) POC Glucose Calcium 9.5 mg/dL mg/dL (8.5-10.4) 06/26/17 14:40 WBC RBC Hgb POC Hgb 14.6 gm/dL gm/dL (13.7-17.5) Hct POC Hct 43 % % (40-51) MCV MCH MCHC RDW Plt Count MPV Neut % (Auto) Lymph % (Auto) [place] % (Auto) Eos % (Auto) Baso % (Auto) Nucleat RBC Rel Count Absolute Neuts (auto) Absolute Lymphs (auto) Absolute Monos (auto) Absolute Eos (auto) Absolute Basos (auto) Absolute Nucleated RBC Immature Gran % Immature Gran # PT INR POC Sodium 142 mEq/L mEq/L (134-144) Sodium POC Potassium 4.3 mEq/L mEq/L (3.3-5.0) Potassium POC Chloride 103 mEq/L mEq/L (97-110) Chloride Carbon Dioxide Anion Gap POC BUN 29 mg/dL H mg/dL (7-23) BUN Creatinine POC Creatinine 1.0 mg/dL mg/dL (0.7-1.3) Estimated GFR Glucose POC Glucose 118 mg/dL H mg/dL (70-100) Calcium Medications Given: Discontinued Medications Morphine Sulfate (Morphine) 4 mg IVP EDNOW ONE Stop: 06/26/17 16:04 Last Admin: 06/26/17 16:08 Dose: 4 mg Point of Care Test Results: 06/26/17 14:40 POC Sodium 142 POC Potassium 4.3 POC Chloride 103 POC BUN 29 H POC Creatinine 1.0 POC Glucose 118 H Departure <Mir Johns - Last Filed: 06/26/17 16:25> <China Madison - Last Filed: 06/26/17 17:39> - Departure Disposition: [facility] Inpatient Acute Clinical Impression: r/o compartment syndrome Hematoma of leg Qualifiers: Encounter type: initial encounter Laterality: right Qualified Code(s): S80.11XA - Contusion of right lower leg, initial encounter Condition: Fair Referrals: Taiwo Islas MD [Primary Care Provider] - As per Instructions
[2017-06-26 16:14] VITALS: PULSE 68
[2017-06-26 16:21] LABS: INR 1.05 (0.83-1.16); PROTIME(PATIENT) 13.6 SEC (12.0-15.0)
[2017-06-26 16:22] LABS: ANION GAP 10 mEq/L (8-16); CALCIUM 9.5 mg/dL (8.5-10.4); CARBON DIOXIDE 27 mEq/l (22-31); CHLORIDE 104 mEq/L (97-110); CREATININE 0.9 mg/dL (0.7-1.3); GLOMERULAR FILTRATION RATE > 60; GLUCOSE 113 mg/dL (70-100); POTASSIUM 4.3 mEq/L (3.5-5.2); SODIUM 141 mEq/L (134-144)
[2017-06-26 16:25] LABS: % IMMATURE GRANULYOCYTES 0.4 % (0.0-1.1); ABSOLUTE IMMATURE GRANULOCYTES 0.03 10^3/uL (0.00-0.10); ADD DIFF? NO; ADD MORPH? NO; ADD SCAN? NO; ATYPICAL LYMPHOCYTE FLAG 0 (0-99); FRAGMENT RBC FLAG 0 (0-99); HEMOGLOBIN 14.7 g/dL (13.7-17.5); LEFT SHIFT FLG 0 (0-99); LIPEMIA HEMOLYSIS FLAG 90 (0-99); MEAN CELL HEMOGLOBIN 31.7 pg (27.9-34.1); MEAN CELL HEMOGLOBIN CONCENTR. 34.2 g/dL (32.4-36.7); MEAN CELL VOLUME 92.7 fL (81.5-99.8); MEAN PLATELET VOLUME 10.4 fL (8.7-11.7); PLATELET CLUMPS FLAG 10 (0-99); PLATELET COUNT 225 10^3/uL (150-400); RED BLOOD CELL COUNT 4.64 10^6/uL (4.40-6.38); RED CELL DISTRIBUTION WIDTH 13.6 % (11.5-15.2)
[2017-06-26] MEDS ORDERED: BUPIVACAINE 0.25% 30 ML SDV ONE (17:40)
[2017-06-26] MEDS ORDERED: POLYMYXIN B SULFATE 500,000 UNIT/10 ML SYR IRR ONE ×2 (17:41→19:01)
[2017-06-26] MEDS ORDERED: BACITRACIN 50,000 UNITS/10 ML SYR IRR ONE ×2 (17:41→19:02)
[2017-06-26] MEDS ORDERED: BUPIVACAINE 0.5% 30 ML SDV ONE (17:43)
--- NOTE | 2017-06-26 18:03 | PDANEPAE ---
ANE History of Present Illness left leg compartment synd ANE Past Medical History - Cardiovascular History Hx Hypertension: No Hx Arrhythmias: No Hx Chest Pain: No Hx Coronary Artery / Peripheral Vascular Disease: No Hx CHF / Valvular Disease: No Hx Palpitations: No Cardiovascular History Comment: ELEVATED CHOLESTEROL - Pulmonary History Hx COPD: No Hx Asthma/Reactive Airway Disease: No Hx Recent Upper Respiratory Infection: No Hx Oxygen in Use at Home: No Hx Sleep Apnea: Yes Pulmonary History Comment: YOBANY- NO CPAP - Neurologic History Hx Cerebrovascular Accident: No Hx Seizures: No Hx Dementia: No - Endocrine History Hx Diabetes: No - Renal History Hx Renal Disorders: Yes Renal History Comment: BPH. NOCTURIA - Liver History Hx Hepatic Disorders: No - Neurological & Psychiatric Hx Hx Neurological and Psychiatric Disorders: No - Cancer History Hx Cancer: Yes Cancer History Comment: SKIN CA- MELANOMA 2014 - Congenital Disorder History Hx Congenital Disorders: No - GI History Hx Gastrointestinal Disorders: Yes Gastrointestinal History Comment: OCCASIONAL GERD. CROHN'S DISEASE - Other Health History Other Health History: STENOSIS. BRUISE EASILY. CERVICALGIA. ARTHRITIS - Chronic Pain History Chronic Pain: Yes (NECK) - Surgical History Prior Surgeries: LT TOTAL HIP 01/2016. R MENISCECTOMY 2007. APPENDECTOMY . TONSILLECTOMY & ADENOIDECTOMY ANE Review of Systems Review of systems is: negative - Exercise capacity Exercise capacity: >=4 METS ANE Patient History - Allergies Allergies/Adverse Reactions: piroxicam [From Feldene] Allergy (Unknown, Verified 02/07/16 09:59) Sulfa (Sulfonamide Antibiotics) Allergy (Unknown, Verified 11/30/16 11:25) Rash cat dander Allergy (Verified 11/30/16 11:25) house dust Allergy (Verified 11/30/16 11:25) tetracycline Allergy (Verified 12/04/16 11:58) - Home Medications Home Medications: Citalopram [CeleXA 20 MG] 20 mg PO DAILY 11/30/16 [Last Taken 12/13/16] HYDROmorphone HCL [Dilaudid 2 mg (*)] 2 mg PO Q4 PRN 12/13/16 [Last Taken ] - NPO status NPO Status: no food or drink >8 hours NPO Since - Liquids (Date): 06/26/17 NPO Since - Liquids (Time): 16:00 NPO Since - Solids (Date): 06/26/17 NPO Since - Solids (Time): 09:00 - Anes Hx Anes Hx: no prior problems - Smoking Hx Smoking Status: Former smoker - Alcohol Use Alcohol Use: Occasionally - Family Anes Hx Family Hx Anesthesia Complications: NONE ANE Labs/Vital Signs - Labs Result Diagrams: 06/26/17 14:50 06/26/17 14:50 - Vital Signs Blood Pressure: 154/102 Heart Rate: 68 Respiratory Rate: 16 O2 Sat (%): 95 Height: 185.42 cm Weight: 86.183 kg ANE Physical Exam - Airway Neck exam: decreased ROM Mallampati Score: Class 2 Mouth exam: normal dental/mouth exam - Pulmonary Pulmonary: no respiratory distress - Cardiovascular Cardiovascular: regular rate and rhythym - ASA Status ASA Status: II ANE Anesthesia Plan Anesthesia Plan: GA w LMA
[2017-06-26] MEDS ORDERED: MIDAZOLAM 2 MG/2 ML VIAL IVP ONE (18:05)
[2017-06-26] MEDS ORDERED: ceFAZolin 3 GM in D5W 100 ML IV ONE (18:11)
[2017-06-26] MEDS ORDERED: LIDOCAINE 2% 5 ML SDV ONE (18:15)
[2017-06-26] MEDS ORDERED: fentaNYL 100 MCG/2 ML INJ ONE (18:15)
[2017-06-26] MEDS ORDERED: PROPOFOL 200 MG/20 ML VIAL ONE (18:16)
--- NOTE | 2017-06-26 18:18 | SOAPPROG ---
SOAP Progress Note Assessment/Plan: Assessment:COMpartment syndrome right leg with large hematoma Plan:Emergent release compartments and evacuate hamatoma right leg. Consent signed in ED by patient. 06/26/17 18:15 Objective: Vital Signs Temp Pulse Resp BP Pulse Ox 36.8 C 68 16 154/102 H 95 06/26/17 17:47 06/26/17 18:03 06/26/17 18:03 06/26/17 18:03 06/26/17 18:03 06/25/17 06/26/17 06/27/17 05:59 05:59 05:59 Intake Total 20 Balance 20 PT 13.6 SEC (12.0-15.0) 06/26/17 14:50 INR 1.05 (0.83-1.16) 06/26/17 14:50 Right leg Medial compartment pressure is over 50mmHg. Large hematoma on CT. DP pulse normal, pain increasing, sensation normal in Tibial, Sural, saphenous, and peroneal dist. Ankle F/E with pain. Calf markedly tight. - Pending Discharge Pending Discharge Within 24 Hours: No Pending Discharge Within 48 Hours: No ICD10 Worksheet Patient Problems: Problems Problem Status Onset Hematoma of leg Acute Hypoxia Acute Primary localized osteoarthritis of left hip Acute
[2017-06-26] MEDS ORDERED: ONDANSETRON 4 MG/2 ML VIAL ONE (18:22)
[2017-06-26] MEDS ORDERED: DEXAMETHASONE 4 MG/ML VIAL ONE (18:22)
[2017-06-26] MEDS ORDERED: BACITRACIN ZINC 14.2 GM OINTTUBE TP ONE (19:17)
[2017-06-26] MEDS ORDERED: GLYCOPYRROLATE 0.2 MG/1 ML VIAL ONE (19:18)
[2017-06-26] MEDS ORDERED: KETOROLAC 30 MG/1 ML SDV ONE (19:19)
--- NOTE | 2017-06-26 19:30 | POSTOPPROG ---
Post Op Note Date of Operation: 06/26/17 Surgeon: Delonte Roberts Molder Trimmer: Rivera Monahan Anesthesia: GET(General Endotracheal) Pre-op Diagnosis: Hematoma and compartment syndrome right leg Post-op Diagnosis: Same Procedure: Evacuatin of hematoma and release posterior compartments Right leg Findings: 300-400cc hematoma both above and deep to muscle fascia posterior medial l Inf/Abcess present in the surg proc area at time of surgery?: No EBL: Minimal Complications: None
[2017-06-26] MEDS ORDERED: NALOXONE HCL 0.4 MG/ML INJ IVP PRN (19:33)
[2017-06-26] MEDS ORDERED: MEPERIDINE 25 MG/ML SYR IVP PRN (19:33)
[2017-06-26] MEDS ORDERED: ALBUTEROL 3 ML DEYVIAL IH PRN (19:33)
[2017-06-26] MEDS ORDERED: ONDANSETRON 4 MG/2 ML VIAL IVP PRN (19:33)
[2017-06-26] MEDS ORDERED: PHENYLEPHRINE HCL 100 MCG/ML SYR IVP ONE (19:34)
--- NOTE | 2017-06-26 19:37 | POSTANESTH ---
Post Anesthetic Evaluation Cardiovascular Status: Normal, Stable Respiratory Status: Normal, Stable Level of Consciousness/Mental Status: Can Participate in Eval Pain Control: Adequate, Prn Tx Ordered Nausea/Vomiting Control: Adequate, Prn Tx Ordered Complications Possibly Related to Anesthesia: None Noted
[2017-06-26 20:23] VITALS: RESP 24
[2017-06-26 22:03] VITALS: BP 111/73; O2SAT 92
[2017-06-26 22:06] VITALS: TEMP 97.9
[2017-06-27] MEDS ORDERED: CEPHALEXIN 500 MG CAP PO SCH ×2
--- NOTE | 2017-06-27 03:19 | GCON ---
[f rep st] CONSULTATION ORTHOPEDIC CONSULTATION NOTE CHIEF COMPLAINT: Right leg pain and swelling. HISTORY OF PRESENT ILLNESS: The patient is a pleasant 76-year-old male who presents with a chief complaint of right leg pain and swelling. The patient states that he initially injured his right leg last evening when he had a mechanical fall, tripping over some furniture in his backyard. He initially presented to the [facility] ED last evening, where he was noted to have abrasions to his bilateral lower extremities. No x-rays were performed at that time. The patient was then discharged, and followed up with his primary care provider, Dr. Bogdan Islas, earlier today. At that time, the patient reported marked increase in pain, as well as increase in swelling and painful movement. He was then referred back to the emergency room for potential concern for acute compartment syndrome. Upon presentation, the patient does have marked tenderness and firmness noted in the posterior compartment, however, does have a 2+ dorsalis pedis and posterior tibialis pulse on the right side. Passive ROM of the right foot reveals minimal discomfort at full dorsiflexion. The patient underwent additional tib-fib by radiographs, as well as a subsequent CT scan which showed no acute osseous injury, however, the CT was positive for a large hematoma of the right lower leg. The patient also underwent compartment pressure measurements in both the medial and lateral aspects of the posterior compartment. The patient's medial compartment pressure was 50, and lateral compartment pressure was noted to be 34. Orthopedic specialty consultation was then ordered. At the time of consultation, the patient states his pain is well controlled, as long as his leg is elevated. He denies any numbness or tingling, as well as temperature change or discoloration of his right lower extremity. Have. He does have discomfort from his compartment pressure testing sites, as well as active bleeding from these sites. He is accompanied by his family in the ED. They have no additional concerns or complaints at this time. PAST MEDICAL HISTORY: This is significant for chronic cervical neck pain. The patient also takes medications which he describes as mood stabilizers, but denies any specific diagnosis for these medications. PAST SURGICAL HISTORY: This is significant for a tonsillectomy, appendectomy, knee arthroscopy, left total hip arthroplasty, anterior fusion of C3 through 5. The patient denies any additional past surgical history. MEDICATIONS: Current medications, please see recent medication reconciliation. The patient does note that he is only taking ibuprofen p.r.n. for his cervical spine injury, and is no longer taking Robaxin, Dilaudid, Flexeril, or [place]. ALLERGIES: The patient reports an allergy to sulfa medications, which has caused a rash in the past, as well as piroxicam, a cat dander allergy and a house dust allergy. The patient denies any additional medical allergies. SOCIAL HISTORY: The patient states that he is a former smoker. The patient reports a current alcohol consumption of approximately 5 drinks per week. The patient denies any recreational drug use. REVIEW OF SYSTEMS: A 10-point review of systems was performed today with no additional concerns, complaints, or abnormal findings noted in the HPI or PMH. PHYSICAL EXAMINATION: VITAL SIGNS: Height is 185.42 cm, weight is 86.18 kg. Blood pressure is 154/102, pulse is 68 BPM, respirations 16 per minute, O2 sats at 95% on room air, temperature is 36.8 degrees Celsius. GENERAL: NAD, pleasant and cooperative with exam. HEENT: PERRLA, EOMI. Ears and nares are patent without discharge. OP is clear. NECK: Supple, NTTP, trachea midline. RESPIRATORY: CTAB, no increased WOB noted. CARDIOVASCULAR: RRR, no M/C said G/R. ABDOMEN: Soft, NT/ND. MUSCULOSKELETAL: Examination of the right lower extremity reveals several abrasions over the anterior and lateral aspects of the right lower leg. The patient has marked TTP over the right posterior calf, medial greater than lateral. Moderate swelling and ecchymosis are noted. The patient demonstrates mild pain with dorsiflexion, but is able to move his foot, ankle, and toes well. Dorsalis pedis and posterior tibialis pulses are intact and 2+. The patient has intact light touch sensation distally appeared have DNVI BLE. SKIN: Please see above dictation concerning a right lower extremity. Additional superficial abrasions are noted over the bilateral lower extremities over the [place]. No additional rashes or lesions are noted. NEUROLOGIC: A and O x3, appropriate mood and affect. Speech is noted to be fluent. PSYCH: Pleasant and cooperative with exam. IMAGING: Two views of the right tibia and fibula were reviewed today showing soft tissue swelling anterior to the mid tibia corresponding to hematoma site, as well as the degenerative changes about the knee and ankle joint. No acute fracture or dislocation was noted. CT examination of the right tibia and fibula reveals no underlying fracture, but does indicate a moderate-sized hematoma posterior medial right calf positioned adjacent to the fascia of the underlying musculature, as read by Radiology. ASSESSMENT: Right lower leg hematoma. Concern for potential acute compartment syndrome. PLAN: This patient's case and radiographs were reviewed with Dr. Roberts, who also saw and examined the patient today. Given the patient's compartment pressure test and exam, there is some concern for a growing hematoma in the right lower extremity, as well as potential acute compartment syndrome. After a discussion of treatment options with the patient and his family, they have decided to proceed with surgical intervention for a right hematoma evacuation versus fasciotomy for acute compartment syndrome. Risks and benefits of the procedure were outlined with the patient today. Signed informed consent has been obtained. Dr. Roberts has requested that the hospitalist service admit this patient, who will likely require at least 1 overnight stay. Potential delayed wound closure has also been discussed with the patient, and how this will likely increase his length of stay as an inpatient. It is possible that the patient be discharged today if surgical findings indicate no compartment syndrome, and an isolated hematoma evacuation occurs with good wound closure. The patient will follow up w/ Dr. Roberts 10-14 days postoperatively, or sooner with any additional concerns or complaints. All the patient's questions have been answered today, and his concerns addressed. He has relayed his understanding of the current care plan and education presented today, and appears pleased with the care he has received today. It has been my pleasure to assist in the care of this patient. /[id number]/MODL MTDD
--- NOTE | 2017-06-27 04:34 | GOP ---
[f rep st] OPERATIVE REPORT DATE OF OPERATION: 06/26/2017 SURGEON: Delonte Roberts MD UPPER CUTTER OUT: Gisell Monahan PA-C PREOPERATIVE DIAGNOSIS: Hematoma with compartment syndrome, right calf. POSTOPERATIVE DIAGNOSIS: Hematoma with compartment syndrome, right calf. PROCEDURE PERFORMED: Evacuation of hematoma and release posterior compartment, right leg. FINDINGS: He had a hematoma that was partially subfascial, but most of which was just above the fas karen layer. I evacuated approximately 250-300 cc of thick clotted blood. The tourniquet was deflate d without evidence of an obvious bleeding source. The deep and superficial posterior compartments w ere released by the medial incision. All muscle was viable and, once the hematoma had been evacuate d, the muscles themselves were soft and supple. There was hematoma both deep to the fascia, but mos t of it as noted above was superficial to the fascia layer. INDICATIONS: The patient is a 76-year-old gentleman who tripped and fell yesterday. He has had inc reasing swelling and pain in his calf that is unmanageable on standard pain medication at home. He has had compartment pressures measured in the [facility] Emergency Department, that revealed elevated press ures in the posterior medial compartment of 50 mmHg versus 30 mmHg on the anterior and lateral david rtments. In addition, he has had a CT scan, shows hematoma on the posterior medial aspect of the le g. He is consequently brought to the operating room for emergent management of his compartment synd katy and evacuation of his hematoma. DESCRIPTION OF PROCEDURE: After routinely checking the patient's identification and consent, and th e successful induction of general endotracheal anesthetic, the patient's right lower extremity was p repped and draped in usual standard fashion. I exsanguinated the limb with elevation and also parti ally with an Esmarch wrap. The surgical time-out was completed. A medial mid axial line incision was carried sharply through the skin. Immediately, in the subcutan eous layer, I encountered a large 200 cc or more hematoma. I evacuated this with suction and digita l dissection. I dissected down to the fascial layer and opened the fascia. There was hematoma bene ath the fascia but the muscles themselves appeared viable and certainly without any compromise. I d eflated the tourniquet. There was minimal bleeding evident. I thoroughly irrigated the wound and e vacuated all identifiable hematoma. Once this was done, with the skin incision and fascia opened, m uscular compartments all were soft and supple. I believe most of this problem came from the large h ematoma that was causing skin and superficial fascial tightness. I estimate there was an approximat ángel 75-100 cc of hematoma deep to the fascial plane, and roughly 250 cc superficial to the muscular fascia. With bleeding points controlled with electrocautery, I closed the skin full thickness with retention sutures of 3-0 nylon suture. A sterile bulky dressing was applied. He had several small skin tear s anteriorly and these were covered with Steri-Strips after repositioning his skin. The patient was reversed from his anesthetic and extubated in the operating room. He was transferred [facility] room in excellent condition and there were no complications. REASON FOR RESTAURANT GREETER: A surgical resident was medically necessary and required to complet e this case. The special ed assistant was used to decrease surgical time, and also to assist in retracting sof t tissue during exposure of the fascial planes and evacuation of the extensive hematoma. /[id number]/MODL
== END 2017-06-26 21:28 | disposition home or self-care (01) ==
LOC: UNDOADMOB 17:39 → FSGY 17:54
PROVIDERS: ATTEND Orthopaedic Surgery Hand Surgery
DX: T79.A21A Traumatic compartment syndrome of right lower extremity, initial encounter (principal); S80.12XA Contusion of left lower leg, initial encounter; S80.11XA Contusion of right lower leg, initial encounter; W01.0XXA Fall on same level from slipping, tripping and stumbling without subsequent striking against object, initial encounter; Y92.007 Garden or yard of unspecified non-institutional (private) residence as the place of occurrence of the external cause; Z96.642 Presence of left artificial hip joint; M54.2 Cervicalgia; Z98.1 Arthrodesis status; Z88.2 Allergy status to sulfonamides
CPT/HCPCS: 82947-QW; 96374; J0690; J1100; J1885; J2250; J2405; J2704; J3010; Q9967

== ENCOUNTER 2017-07-15 15:59 | Inpatient (IN) | payer OTHER ==
--- NOTE | 2017-07-15 16:32 | EDPHY ---
H & P Time Seen by Provider: 07/15/17 16:10 HPI/ROS: CHIEF COMPLAINT: Right leg wound drainage HISTORY OF PRESENT ILLNESS: Patient had right leg hematoma evacuated for compartment syndrome by Dr. Roberts on June 26 of this year. He has been having some drain in the right leg for the past week and today was in the office and was sent here for evaluation by Dr. Roberts. Drainage is bad smelling and dark red. Not associated with fever chills or pus. He has normal motor sensory in the right foot. REVIEW OF SYSTEMS: Eye: no change in vision ENT: no sore throat Cardiac: no chest pain or syncope Pulmonary: no cough or SOB Abdomen: no vomiting, diarrhea, abdominal pain Musculoskeletal: no back pain Skin: draining wound right leg Neuro: no headache Constitutional: no fever : no urinary symptoms A comprehensive 10 point review of systems is otherwise negative aside from elements mentioned in the history of present illness. PAST MEDICAL HISTORY: right leg hematoma , surgery for compartment syndrome. Left total hip replacement. Social history: Here with spouse, former smoker General Appearance: Alert and conversant, cooperative. Eyes: No scleral icterus. ENT, Mouth: Normal mucous membranes. Respiratory: Normal respiratory effort, breath sounds equal, lungs are clear to auscultation. Cardiovascular: Regular rate and rhythm. Gastrointestinal: Abdomen is soft and non tender. Neurological: Alert and oriented x3. Normally conversant. Face symmetric, normal movement and sensation in all extremities. Skin: Lower 3 cm of the right medial calf incision is draining dark red intermittently clotting bad smelling fluid. There is mild erythema surrounding the wound and some scaling skin. Musculoskeletal: Compartments in the right lower leg is soft. Normal motor sensory and dorsalis pedis in the right foot. Psychiatric: Not agitated. Emergency Department course/MDM: Seen by Dr. Levi and Dr. Roberts in the emergency department. Plan to go tonight to the operating room for evacuation of the hematoma. No antibiotics or cultures here per customer relations consultant Armando. Smoking Status: Former smoker Constitutional: Initial Vital Signs Temperature (C) 36.3 C 07/15/17 16:04 Heart Rate 88 07/15/17 16:04 Respiratory Rate 16 07/15/17 16:04 Blood Pressure 180/87 H 07/15/17 16:04 O2 Sat (%) 98 07/15/17 16:04 O2 Delivery Mode Room Air Allergies/Adverse Reactions: piroxicam [From Feldene] Allergy (Unknown, Verified 02/07/16 09:59) Sulfa (Sulfonamide Antibiotics) Allergy (Unknown, Verified 11/30/16 11:25) Rash cat dander Allergy (Verified 11/30/16 11:25) house dust Allergy (Verified 11/30/16 11:25) tetracycline Allergy (Verified 12/04/16 11:58) Home Medications: Medication Instructions Recorded Citalopram 07/15/17 Citalopram [CeleXA] 20 mg PO DAILY 07/15/17 Diazepam [Valium 2 MG (*)] 2 mg PO 07/15/17 Valium 07/15/17 traMADol [Ultram 50 mg (*)] 50 mg PO Q4 07/15/17 Medical Decision Making Differential Diagnosis: Differential considered including but not limited to abscess, hematoma, DVT, compartment syndrome. Consult/Admit Bed Type: [place] 1610, [place] 1625, [place] 1630 Departure - Departure Disposition: To OP Cath/Surgery Clinical Impression: Hematoma of leg Qualifiers: Encounter type: initial encounter Laterality: right Qualified Code(s): S80.11XA - Contusion of right lower leg, initial encounter Condition: Good
[2017-07-15 17:02] LABS: % IMMATURE GRANULYOCYTES 0.5 % (0.0-1.1); ABSOLUTE IMMATURE GRANULOCYTES 0.03 10^3/uL (0.00-0.10); ADD DIFF? NO; ADD MORPH? NO; ADD SCAN? NO; ATYPICAL LYMPHOCYTE FLAG 0 (0-99); FRAGMENT RBC FLAG 0 (0-99); HEMOGLOBIN 12.6 g/dL (13.7-17.5); LEFT SHIFT FLG 0 (0-99); LIPEMIA HEMOLYSIS FLAG 80 (0-99); MEAN CELL HEMOGLOBIN 30.9 pg (27.9-34.1); MEAN CELL HEMOGLOBIN CONCENTR. 33.2 g/dL (32.4-36.7); MEAN CELL VOLUME 93.1 fL (81.5-99.8); MEAN PLATELET VOLUME 9.1 fL (8.7-11.7); PLATELET CLUMPS FLAG 0 (0-99); PLATELET COUNT 287 10^3/uL (150-400); RED BLOOD CELL COUNT 4.08 10^6/uL (4.40-6.38); RED CELL DISTRIBUTION WIDTH 13.4 % (11.5-15.2)
[2017-07-15 17:34] LABS: ANION GAP 11 mEq/L (8-16); CALCIUM 9.3 mg/dL (8.5-10.4); CARBON DIOXIDE 25 mEq/l (22-31); CHLORIDE 103 mEq/L (97-110); CREATININE 0.8 mg/dL (0.7-1.3); GLOMERULAR FILTRATION RATE > 60; GLUCOSE 104 mg/dL (70-100); POTASSIUM 4.1 mEq/L (3.5-5.2); SODIUM 139 mEq/L (134-144)
--- NOTE | 2017-07-15 17:53 | SOAPPROG ---
SOAP Progress Note Assessment/Plan: Assessment:Infected hematoma or Seroma right leg Plan: Urgent I + D. To OR when stomach sufficiently empty (20:30 tonight) Pt has signed consent. Possibly place wound vac. 07/15/17 17:51 Subjective: Leg is swollen Objective: Vital Signs Temp Pulse Resp BP Pulse Ox 36.7 C 61 18 163/97 H 92 07/15/17 17:09 07/15/17 17:09 07/15/17 17:09 07/15/17 17:09 07/15/17 17:09 Microbiology 07/15/17 16:50 Gram Stain - Final Leg - Swab Laboratory Results 07/15/17 16:50 07/15/17 16:50 Foul smelling brown discharge from calf wound created to decompress right calf 2 weeks ago ([facility] admission) Consulted Dr Levi in ED and agreed to wash out tonight. ICD10 Worksheet Patient Problems: Problems Problem Status Onset Hematoma of leg Acute Hypoxia Acute Primary localized osteoarthritis of left hip Acute
[2017-07-15] MEDS ORDERED: ONDANSETRON DISINTEGRATING 4 MG TAB PO PRN (18:08)
[2017-07-15] MEDS ORDERED: ACETAMINOPHEN 325 MG TAB PO PRN (18:08)
[2017-07-15] MEDS ORDERED: TEMAZEPAM 15 MG CAP PO PRN (18:08)
[2017-07-15] MEDS ORDERED: ONDANSETRON 4 MG/2 ML VIAL IVP PRN ×2 (18:08→22:40)
[2017-07-15] MEDS ORDERED: DIAZEPAM 2 MG TAB PO PRN (18:11)
[2017-07-15] MEDS ORDERED: hydrALAZINE 10 MG TAB PO PRN (18:17)
--- NOTE | 2017-07-15 18:59 | GHP ---
[f rep st] HISTORY AND PHYSICAL DATE OF ADMISSION: 07/15/2017 CHIEF COMPLAINT: Leg swelling and pain. HISTORY: This is a 76-year-old man with a past medical history of Crohn disease, in remission, as we ll as BPH and GERD, and a recent issue with right leg pain and swelling that began following a mechan ical fall when he tripped over furniture in his backyard. He initially presented to [facility] ER on the of last month. It was noted that he had abrasions to his bilateral legs an d worsening pain and swelling of lower extremities, particularly the right, that was concerning for p ossible compartment syndrome. There was noted to be a significant right lower extremity hematoma and patient underwent both evacuation of the hematoma and release of the posterior compartment of his ri ght leg. He was discharged to home and per his report initially was doing well but then noticed that he has been having increasing swelling and drainage from that right lower extremity. He also noted that there was some malodorous drainage present as well. He was seen by Infectious Disease as well a s Orthopedics, who both have concerns for possible infected hematoma and related plans for surgical d rainage. At the time of my evaluation, patient denies any pain. He is somewhat anxious about the pr ocedure, but otherwise has no complaints. PAST MEDICAL HISTORY: 1. Right leg compartment syndrome and hematoma. 2. BPH. 3. GERD. 4. Anxiety. 5. Arthritis. PAST SURGICAL HISTORY: 1. Compartment syndrome release and hematoma evacuation. 2. Tonsillectomy. 3. Appendectomy. 4. Knee arthroscopy. 5. Left total hip. 6. Anterior fusion, C3 through C5. SOCIAL HISTORY: Patient is a remote smoker. He drinks alcohol socially. He is and has 5 ch ildren. FAMILY HISTORY: This was reviewed and is noncontributory. MEDICATIONS: Include: 1. Ibuprofen. 2. Tramadol. 3. Valium. 4. Celexa. ALLERGIES: Multiple, and include sulfa and tetracycline. REVIEW OF SYSTEMS: A 10-point review of systems obtained, negative except as per HPI. PHYSICAL EXAMINATION: VITAL SIGNS: BP 184/98, heart rate 62, respiratory rate 12, O2 saturations 94 % on room air. Temperature is 36.8. GENERAL APPEARANCE: Well-developed/well-nourished man. He is awake and alert. He is in no acute distress. HEENT: Oropharynx clear, moist mucous membranes, extr aocular movements intact. CARDIOVASCULAR: RRR, no MRG. PULMONARY: CTA bilaterally. ABDOMEN: Sof t, nontender, nondistended. EXTREMITIES: There are abrasions on the left lower extremity. Right lo wer extremity is bandaged and ecchymotic and swollen. SKIN: Warm, dry, well perfused. NEURO/PSYCH: Oriented, appropriate, pleasant. CLINICAL DATA: Labs reviewed. Significant for white blood cell count of 5.8, hematocrit 38, platele ts of 287. Coags are normal. Chemistry is essentially unremarkable. ASSESSMENT/PLAN: This is a 76-year-old man status post recent compartment syndrome and hematoma carri martin presenting with concerns for infected hematoma. 1. Infected hematoma; again, this is presumed based on physical examination and history. He is not septic appearing. Plan is for surgical evacuation today with possible wound VAC placement. ID has b maurice consulted and we will defer to them in terms of antibiotics. Given his appearing quite well, it is reasonable to hold off on initiating any antibiotics until we have some culture data to guide ther apy. 2. Recent compartment syndrome as per above. He does not appear to have recurrent compartment syndr ome, but this will be evaluated operatively. 3. Anxiety. We will continue his home medications. 4. Arthritis with some chronic pain at baseline. He is generally on tramadol and ibuprofen. These will be continued. 5. Disposition. Observation status. Patient is hoping that he will require less than 48 hours' sta y and if possible will be discharged home tomorrow. The patient is new to my care. Old records reviewed, summarized as per HPI and past medical history. Care plan reviewed with ER physician, including plans for surgical evaluation of right lower extrem ity wound. /[id number]/MODL
[2017-07-15] MEDS: traMADol 50 MG TAB PO SCH (21:26)
[2017-07-15] MEDS ORDERED: MIDAZOLAM 2 MG/2 ML VIAL IVP ONE (22:08)
--- NOTE | 2017-07-15 22:09 | PDANEPAE ---
ANE History of Present Illness r foot infection and pain ANE Past Medical History - Cardiovascular History Hx Hypertension: No Hx Arrhythmias: No Hx Chest Pain: No Hx Coronary Artery / Peripheral Vascular Disease: No Hx CHF / Valvular Disease: No Hx Palpitations: No Cardiovascular History Comment: ELEVATED CHOLESTEROL - Pulmonary History Hx COPD: No Hx Asthma/Reactive Airway Disease: No Hx Recent Upper Respiratory Infection: No Hx Oxygen in Use at Home: No Hx Sleep Apnea: Yes Sleep Apnea Screening Result - Last Documented: Positive Pulmonary History Comment: YOBANY- NO CPAP - Neurologic History Hx Cerebrovascular Accident: No Hx Seizures: No Hx Dementia: No - Endocrine History Hx Diabetes: No - Renal History Hx Renal Disorders: Yes Renal History Comment: BPH. NOCTURIA - Liver History Hx Hepatic Disorders: No - Neurological & Psychiatric Hx Hx Neurological and Psychiatric Disorders: No - Cancer History Hx Cancer: Yes Cancer History Comment: SKIN CA- MELANOMA 2014 - Congenital Disorder History Hx Congenital Disorders: No - GI History Hx Gastrointestinal Disorders: Yes Gastrointestinal History Comment: OCCASIONAL GERD. CROHN'S DISEASE - Other Health History Other Health History: STENOSIS. BRUISE EASILY. CERVICALGIA. ARTHRITIS - Chronic Pain History Chronic Pain: Yes (NECK) - Surgical History Prior Surgeries: LT TOTAL HIP 01/2016. R MENISCECTOMY 2007. APPENDECTOMY . TONSILLECTOMY & ADENOIDECTOMY ANE Review of Systems Review of Systems: ANE Patient History - Allergies Allergies/Adverse Reactions: piroxicam [From Feldene] Allergy (Unknown, Verified 02/07/16 09:59) Sulfa (Sulfonamide Antibiotics) Allergy (Unknown, Verified 11/30/16 11:25) Rash cat dander Allergy (Verified 11/30/16 11:25) house dust Allergy (Verified 11/30/16 11:25) tetracycline Allergy (Verified 12/04/16 11:58) - Home Medications Home Medications: Citalopram [CeleXA] 20 mg PO DAILY 07/15/17 [Last Taken 07/14/17] Diazepam [Valium 2 MG (*)] 2 mg PO Q4 PRN 07/15/17 [Last Taken 07/14/17] Herbals/Supplements -Info Only 1 each PO DAILY 07/15/17 [Last Taken Unknown] Ibuprofen [Advil] 200 mg PO Q4 PRN 07/15/17 [Last Taken 07/15/17] traMADol [Ultram 50 mg (*)] 50 mg PO Q4 07/15/17 [Last Taken 07/14/17] - NPO status NPO Since - Liquids (Date): 07/15/17 NPO Since - Liquids (Time): 12:30 NPO Since - Solids (Date): 07/15/17 NPO Since - Solids (Time): 12:30 - Smoking Hx Smoking Status: Former smoker - Family Anes Hx Family Hx Anesthesia Complications: NONE ANE Labs/Vital Signs - Labs Result Diagrams: 07/15/17 16:50 07/15/17 16:50 - Vital Signs Blood Pressure: 147/84 Heart Rate: 59 Respiratory Rate: 16 O2 Sat (%): 95 Height: 182.88 cm Weight: 86.183 kg ANE Physical Exam - Airway Neck exam: FROM Mallampati Score: Class 2 Mouth exam: normal dental/mouth exam - Pulmonary Pulmonary: no respiratory distress - Cardiovascular Cardiovascular: regular rate and rhythym - ASA Status ASA Status: II ANE Anesthesia Plan Anesthesia Plan: GA w LMA
[2017-07-15] MEDS ORDERED: PROPOFOL 200 MG/20 ML VIAL ONE ×2 (22:13)
[2017-07-15] MEDS ORDERED: fentaNYL 100 MCG/2 ML INJ ONE ×3 (22:13→23:21)
[2017-07-15] MEDS ORDERED: MIDAZOLAM 2 MG/2 ML VIAL ONE (22:16)
[2017-07-15] MEDS ORDERED: ACETAMINOPHEN 500 MG TAB PO PRN (22:40)
[2017-07-15] MEDS ORDERED: NALOXONE HCL 0.4 MG/ML INJ IVP PRN (22:40)
[2017-07-15] MEDS ORDERED: PROMETHAZINE HCL 25 MG/ML INJ IVP PRN (22:40)
[2017-07-15] MEDS ORDERED: HYDROCODONE/APAP 5/325 TAB PO PRN (22:40)
--- NOTE | 2017-07-15 23:14 | POSTOPPROG ---
Post Op Note Date of Operation: 07/15/17 Surgeon: Delonte Roberts Anesthesia: LMA Pre-op Diagnosis: Infected hematoma/seroma right calf Post-op Diagnosis: Same Procedure: I + D and placement of wound vac Findings: No pus identified. Foul smelling brown liquid cultured x 2 Inf/Abcess present in the surg proc area at time of surgery?: No EBL: Minimal Complications: None Drains: Wound Vac (R calf)
[2017-07-15] MEDS: fentaNYL 100 MCG/2 ML INJ IVP PRN ×2 (23:23→23:36)
[2017-07-16] MEDS: HYDROmorphONE/DILAUDID 1 MG/ML INJ IVP PRN (00:43)
[2017-07-16] MEDS: traMADol 50 MG TAB PO SCH ×6 (02:23→21:48)
[2017-07-16 04:58] LABS: % IMMATURE GRANULYOCYTES 0.4 % (0.0-1.1); ABSOLUTE IMMATURE GRANULOCYTES 0.03 10^3/uL (0.00-0.10); ADD DIFF? NO; ADD MORPH? NO; ADD SCAN? NO; ATYPICAL LYMPHOCYTE FLAG 0 (0-99); FRAGMENT RBC FLAG 0 (0-99); HEMATOCRIT 36.8 % (40.0-51.0); HEMOGLOBIN 12.3 g/dL (13.7-17.5); LEFT SHIFT FLG 0 (0-99); LIPEMIA HEMOLYSIS FLAG 80 (0-99); MEAN CELL HEMOGLOBIN CONCENTR. 33.4 g/dL (32.4-36.7); MEAN CELL VOLUME 92.7 fL (81.5-99.8); MEAN PLATELET VOLUME 9.5 fL (8.7-11.7); PLATELET CLUMPS FLAG 10 (0-99); PLATELET COUNT 278 10^3/uL (150-400); RED BLOOD CELL COUNT 3.97 10^6/uL (4.40-6.38); RED CELL DISTRIBUTION WIDTH 13.3 % (11.5-15.2)
[2017-07-16 05:14] LABS: ANION GAP 10 mEq/L (8-16); CARBON DIOXIDE 24 mEq/l (22-31); CHLORIDE 105 mEq/L (97-110); CREATININE 0.8 mg/dL (0.7-1.3); GLOMERULAR FILTRATION RATE > 60; GLUCOSE 137 mg/dL (70-100); POTASSIUM 4.2 mEq/L (3.5-5.2); SODIUM 139 mEq/L (134-144)
[2017-07-16] MEDS: ceFAZolin 2 GM/DEXTROSE 100 ML IV SCH ×2 (06:10→14:22)
--- NOTE | 2017-07-16 06:21 | GOP ---
[f rep st] OPERATIVE REPORT DATE OF OPERATION: 07/15/2017 SURGEON: Delonte Roberts MD PREOPERATIVE DIAGNOSIS: Infected hematoma, right calf. POSTOPERATIVE DIAGNOSIS: Infected hematoma, right calf. PROCEDURE PERFORMED: 1. Irrigation and debridement, right calf wound, with evacuation of hematoma and seroma, with deep c ultures x2. 2. Placement of wound VAC. FINDINGS: There was essentially brown fluid surrounding all the tissue with just a small amount of s olid, coagulated blood. I irrigated this thoroughly. The muscle edges and subcutaneous fat were bro wn-stained and friable. I debrided the nonviable tissue and I controlled bleeding with electrocauter y. I placed a wound VAC to have continuous suction drainage on the wound. INDICATIONS: The patient is a 76-year-old gentleman, who approximately 2-1/2 weeks ago, had acute co mpartment syndrome and calf hematoma that was evacuated in the operating room, with compartment relea se. In followup today, his wound is foul-smelling with brown liquid drainage. He is brought to the operating room for I and D procedure, and placement of wound VAC. DESCRIPTION OF PROCEDURE: After routinely checking the patient's identification and consent, and the successful induction of LMA general anesthetic, the patient's right leg was prepped and draped in [facility] standard fashion. I did not use a tourniquet during the case. His sutures were removed, and I u sed my finger to open his wound, which was incompletely sealed, especially distally where I had remov ed sutures today earlier in my office. As soon as the skin had , I took deep cultures towar ds the calf musculature and then 1 anteriorly, where the subcutaneous tissue had completely from the anterior tibia. I then proceeded to irrigate the wound with 3 L of normal saline using bul b syringe. I inspected the tissue, and the subcutaneous fat appeared viable, but, I believe, his wou nd was brown-stained. I removed all identifiable nonviable tissue. I then cut the sponge for the wo und VAC. I placed this within the wound and then placed the wound VAC. I sealed the wound VAC in pl melissa. This achieved good suction and was evacuating a residual fluid as we left the operating room. The patient was reversed from his anesthetic and extubated in the operating room, and transferred to the recovery area in good condition. He tolerated the procedure well. There were no complications. /[id number]/MODL
[2017-07-16] MEDS: CITALOPRAM 20 MG TAB PO SCH (08:26)
--- NOTE | 2017-07-16 10:42 | PCMIDPN ---
Assessment/Plan: Assessment/Plan: 1. Right leg infected hematoma: s/p I & D - Cultures in progress. -Currently on Ancef therapy -wound vac in place -tentative expected course discussed with patient. -plan of care reviewed with him and . - care coordinated with Alex. Jonathan ancef 2g q8- Subjective: afebrile. feels better today. wound vac on. denies sob, abd pain, diarrhea. pain with weight bearing, no pain at rest. Objective: Vital Signs Temp Pulse Resp BP Pulse Ox 36.6 C 64 16 132/73 H 95 07/16/17 03:00 07/16/17 03:00 07/16/17 03:00 07/16/17 03:00 07/16/17 03:00 Microbiology 07/15/17 22:40 Gram Stain - Final Leg - Anaerobic Tube/Swab 07/15/17 22:40 Gram Stain - Final Leg - Anaerobic Tube/Swab 07/15/17 16:50 Gram Stain - Final Leg - Swab Laboratory Results 07/16/17 04:18 07/16/17 04:18 07/15/17 07/16/17 07/17/17 05:59 05:59 05:59 Intake Total 930 Output Total 680 Balance 250 - Physical Exam General Appearance: alert, no apparent distress Respiratory: lungs clear Cardiac/Chest: regular rate, rhythm Abdomen: normal bowel sounds, non-tender, soft, No distended Skin: other (right leg: with wound vac in place. mild erythema underdressing but has somewhat of chronic appearance .) - Time Spent With Patient Time Spent with Patient: greater than 35 minutes Time Spent with Patient: Greater than 35 minutes spent on this patients care, greater than 50% of time spent counseling, educating, and coordinating care regarding the above mentioned plan. ICD10 Worksheet Patient Problems: Problems Problem Status Onset Hematoma of leg Acute Hypoxia Acute Primary localized osteoarthritis of left hip Acute
--- NOTE | 2017-07-16 11:55 | SOAPPROG ---
SOAP Progress Note Assessment/Plan: Assessment/Plan: Right leg infected hematoma s/p I & D performed by Dr. Roberts on 07/15/2017, POD #1 -Infectious disease consulting, appreciate their services -Cultures pending -Continue Ancef per ID -wound vac in place -Cont current PO pain management -Cont PT/OT, WBAT of BLE 07/16/17 11:53 Subjective: Pt seen up in bed. No complaints of significant pain at this time. Pt denies any current f/c/n/v. He also denies any posterior calf pain bilaterally, as well as any damian, dizziness, syncope, sob, cp, abd pain or new onset n/t in the BLE. He states he is tolerating his diet and medications well. He has no additional concerns or complaints at this time. Objective: Vital Signs Temp Pulse Resp BP Pulse Ox 36.6 C 64 16 132/73 H 95 07/16/17 03:00 07/16/17 03:00 07/16/17 03:00 07/16/17 03:00 07/16/17 03:00 Microbiology 07/15/17 22:40 Gram Stain - Final Leg - Anaerobic Tube/Swab 07/15/17 22:40 Gram Stain - Final Leg - Anaerobic Tube/Swab 07/15/17 16:50 Gram Stain - Final Leg - Swab Laboratory Results 07/16/17 04:18 07/16/17 04:18 07/15/17 07/16/17 07/17/17 05:59 05:59 05:59 Intake Total 930 Output Total 680 Balance 250 Pt seen at bedside, sitting up. A&Ox3, appropriate mood and affect, pleasant and cooperative with today's exam. VSS, afebrile. Exam of the RLE reveals intact wood vac, with mild erythema under the dressing. Further exam of the leg reveals ecchymosis of the R ankle and foot. Pt moves ankle/foot/toes well. Post calves NTTP, no palpable vascular cords, neg Jennifer's bilat. DNVI BLE. ICD10 Worksheet Patient Problems: Problems Problem Status Onset Hematoma of leg Acute Hypoxia Acute Primary localized osteoarthritis of left hip Acute
--- NOTE | 2017-07-16 14:28 | ASMTCMCOM ---
CM Note CM Note Notes: Pt had I and D for infected hematoma wound vac placed. OT/PT clear pt for home. Pt currently on IV antibiotics, blood cultures pending. Pt may need wound vac and/or IV antibiotics at d/c, case management to follow. Date Signed: 07/16/2017 02:28 PM Electronically Signed By:NATALEE Cooper
--- NOTE | 2017-07-16 16:00 | HOSPPROG ---
Hospitalist Progress Note Assessment/Plan: 76 yo M with hx of recent compartment syndrome s/p compartment release and drainage of hematoma presenting with infected hematoma # infected hematoma: s/p surgical drainage with cultures pending. ID involved and following, waiting on culture results prior to initiating abx. Getting ancef for post op ppx. Wound vac in place. # recent compartment syndrome: as above, doing well, ambulating well # anxiety/mood d/o: continue citalopram/valium per home routine # IP status, will need > 48 hours stay for eval/mgmt of above Care plan reviewed with ID, plan for at least 1-2 more days in house pending culture data Subjective: no acute overnight events, underwent surgery late last night and doing well Objective: Vital Signs Temp Pulse Resp BP Pulse Ox 36.7 C 63 12 136/63 H 92 07/16/17 12:00 07/16/17 12:00 07/16/17 12:00 07/16/17 12:00 07/16/17 12:00 Microbiology 07/15/17 22:40 Gram Stain - Final Leg - Anaerobic Tube/Swab 07/15/17 22:40 Gram Stain - Final Leg - Anaerobic Tube/Swab 07/15/17 16:50 Gram Stain - Final Leg - Swab Laboratory Results 07/16/17 04:18 07/16/17 04:18 07/15/17 07/16/17 07/17/17 05:59 05:59 05:59 Intake Total 930 Output Total 680 Balance 250 awake alert nad anicteric op clear rrr no mrg cta b soft nt nd rle with wound vac in place, draining serosanguinous fluid no cce warm dry well perfused ICD10 Worksheet Patient Problems: Problems Problem Status Onset Primary localized osteoarthritis of left hip Acute Hypoxia Acute Hematoma of leg Acute
--- NOTE | 2017-07-16 17:12 | GCON ---
[f rep st] CONSULTATION INFECTIOUS DISEASE CONSULT DATE OF CONSULTATION: 07/15/2017 REFERRING PHYSICIAN: Delonte Roberts MD REASON FOR REFERRAL: Right lower extremity draining wound. HISTORY OF PRESENT ILLNESS: Patient is a 76-year-old male, who had a trauma to his right anterior lo wer extremity approximately a week and a half ago when he fell over wrought iron furniture in his [place]. The patient had ultimately developed subcutaneous and deep hematomas. He had that washed out l ast week by Dr. Roberts. This resulted in some significant improvement in the size and tenderness in the right lower extremity; however, the wound was noted to be draining some dark-colored fluid in the of fice today at his orthopedist. The fluid was also noted to be malodorous. Concern was that he develop ed an additional hematoma and that this may have gotten secondarily infected. The patient has present ed to the emergency room. He was evaluated there by me. Other than the drainage, he has no particular complaints. Denies fevers or chills. PAST MEDICAL HISTORY: 1. Right leg compartment syndrome and hematoma. 2. Benign prostatic hypertrophy. 3. Gastroesophageal reflux disease. 4. Anxiety. 5. Arthritis. PAST SURGICAL HISTORY: 1. Status post deep hematoma with compartment syndrome. 2. Status post tonsillectomy. 3. Status post appendectomy. 4. Status post knee arthroscopy. 5. Status post total hip replacement on the left side. 6. Status post cervical fusion C3 through C5. ANTIBIOTICS: None currently. ALLERGIES: The patient is allergic to sulfa and tetracyclines. SOCIAL HISTORY: Patient is . Smoked cigarettes a very long time ago, but has been tobacco jareth e for a number of decades. Occasional alcoholic drink. FAMILY HISTORY: Reviewed, but noncontributory. REVIEW OF SYSTEMS: Other than that detailed above in History of Present Illness, a comprehensive 10- system review is negative. PHYSICAL EXAMINATION: VITAL SIGNS: Temperature maximum is 36.7, temperature current is 36.7. Heart r ate is 61, respiratory rate is 18, blood pressure is 163/97. GENERAL: The patient is a well-formed, w ell-nourished, older male, in no acute distress. He is not toxic in appearance. He is alert and orien anival x3. He has a pleasant demeanor. HEENT: Normocephalic for age. Atraumatic. No scleral icterus. No oral lesion or drainage from the nares. Eyes: Lids and conjunctivae are within normal limits. Pupils are equal and round bilaterally. NECK: Supple. No meningismus. LUNGS: Clear to auscultation bilateral ly with good effort. HEART: Regular rate and rhythm. No murmur, rub, or gallop noted. SKIN: Warm and dry to the touch. Patient has an anterior vertical incision that is sutured on the anteromedial aspec t of his right lower leg. The distal aspect of that incision is discharging dark brown fluid. There i s mild malodor to it. The soft tissue around does not look significantly erythematous or indurated. H e is mildly tender to palpation over the area. MUSCULOSKELETAL: No muscle belly tenderness is noted. No joint line effusion or arthritis is seen. NEURO: Cranial nerves 2 through 12 seem to be intact. Pe ripheral sensation seems intact in extremities. LABORATORY DATA: The patient has a CBC dated 07/15/17, showed a white blood cell count of 5.9, hemog lobin of 12.6, hematocrit of 38.0, and a platelet count of 287. Differential is within normal limits. Serum chemistries on 07/15/2017 are all within normal limits. Creatinine is 0.8. ASSESSMENT: Reaccumulated hematoma of the right lower extremity. Possibly secondarily infected. Does likely need a washout of the area with deep cultures. Ancef is reasonable coverage. One sample is ob tained. Discussed case with Dr. Roberts. The patient will be going back for surgical washout tonight. PLAN: 1. Surgical washout with Dr. Roberts later this evening. 2. Empiric coverage with cefazolin 2 g IV q.8, monotherapy. 3. Follow clinical course and culture data. /[id number]/MODL
[2017-07-16] MEDS: IBUPROFEN 200 MG TAB PO PRN (18:10)
[2017-07-17] MEDS: traMADol 50 MG TAB PO SCH ×6 (03:25→22:00)
--- NOTE | 2017-07-17 06:51 | SOAPPROG ---
SOAP Progress Note Assessment/Plan: Assessment/Plan: Right leg infected hematoma s/p I & D performed by Dr. Roberts on 07/15/2017, POD #2 -Infectious disease consulting, appreciate their services -Cultures resulted, await ID input for abx treatment -wound vac in place, wound care consult placed 07/16/2017 -Cont current PO pain management -Cont PT/OT, WBAT of BLE -D/c pending ID abx planning 07/17/17 06:50 Subjective: Pt seen at bedside. No complaints of significant pain overnight. Pt continues to deny any f/c/n/v. He also denies any new onset n/t, as well as post calf pain, cp or sob. He states he is tolerating his diet and medications well. He has no additional concerns or complaints at this time, and is anxious to find out discharge dispo. Objective: Vital Signs Temp Pulse Resp BP Pulse Ox 36.7 C 59 L 16 123/67 H 93 07/16/17 23:33 07/16/17 23:33 07/16/17 23:33 07/16/17 23:33 07/16/17 23:33 07/16/17 07/17/17 07/18/17 05:59 05:59 05:59 Intake Total 1100 Balance 1100 Pt seen at bedside, awoken for exam. A&Ox3, appropriate mood and affect, pleasant and cooperative with today's exam. VSS, afebrile. Exam of the RLE reveals intact wood vac, with mild erythema under the dressing. Further exam of the leg reveals ecchymosis of the R ankle and foot, no significant change since yesterday. Pt moves ankle/foot/toes well. Post calves NTTP, no palpable vascular cords, neg Jennifer's bilat. DNVI BLE. ICD10 Worksheet Patient Problems: Problems Problem Status Onset Hematoma of leg Acute Hypoxia Acute Primary localized osteoarthritis of left hip Acute
[2017-07-17] MEDS: CITALOPRAM 20 MG TAB PO SCH (10:16)
[2017-07-17] MEDS: oxyCODONE IR 5 MG TAB PO PRN ×2 (12:15→18:07)
[2017-07-17] MEDS: HYDROmorphONE/DILAUDID 1 MG/ML INJ IVP PRN (13:32)
[2017-07-17] MEDS ORDERED: LIDOCAINE 4% 15 GM CREAM TP PRN (14:12)
[2017-07-17] MEDS ORDERED: HYDROmorphONE/DILAUDID 1 MG/ML INJ IVP PRN (14:38)
--- NOTE | 2017-07-17 14:45 | HOSPPROG ---
Hospitalist Progress Note Assessment/Plan: 76 yo M with hx of recent compartment syndrome s/p compartment release and drainage of hematoma presenting with infected hematoma # infected hematoma: s/p surgical drainage and wound vac placement. Initial culture data showing e coli and enterobacter. Starting back on ancef and will transition to orals in am when final culture data available. Pain today is severe following wound vac change, will increase PRN pain medications. # recent compartment syndrome: as above, doing well, ambulating well # anxiety/mood d/o: continue citalopram/valium per home routine # IP status, will need > 48 hours stay for eval/mgmt of above Care plan reviewed with ID, likely will dc in am. Subjective: no significant overnight events, today he is having significant amounts of pain after changing his wound vac Objective: Vital Signs Temp Pulse Resp BP Pulse Ox 36.9 C 57 L 14 118/68 92 07/17/17 08:00 07/17/17 08:00 07/17/17 08:00 07/17/17 08:00 07/17/17 08:00 07/16/17 07/17/17 07/18/17 05:59 05:59 05:59 Intake Total 1100 Balance 1100 awake alert nad anicteric op clear rrr no mrg cta b soft nt nd rle with wound vac in place, draining serosanguinous fluid no cce warm dry well perfused ICD10 Worksheet Patient Problems: Problems Problem Status Onset Hematoma of leg Acute Hypoxia Acute Primary localized osteoarthritis of left hip Acute
[2017-07-17] MEDS: ceFAZolin 2 GM/DEXTROSE 100 ML IV SCH ×2 (14:52→21:59)
--- NOTE | 2017-07-17 15:42 | WOCRNPDOC ---
WOCRN Advanced Assessment Note - Skin Integrity Problem, Advanced Assess Right Lower Leg Dressing Type: Black Vac Foam (x1), Wound Vac Dressing Description: Clean/Dry, Intact Exudate Amount: Moderate Exudate Color: Red Exudate Characteristic(s): Serosanguinous (with visible lipid) Integumentary Issue Intervention: Dressing Changed Indu Wound Tissue: Erythema, Macerated, Raw, Shiny, Painful/Tender Indu Wound Swelling: Mild Wound Bed Color: Red, Yellow Wound Bed Constitution: Granulation Tissue (20%), Smooth Tissue (80%), Undermining (There is an area of undermining from 11 o'clock to 3 o'clock. At 11 o'clock the undermining measures 0.5cm, increasing in depth at 1 o'clock to 1.2cm.), Muscle, Subcutaneous Fat Wound Edges: Attached, Well Defined Site Odor: Strong, Musky Site Measurement - Head-to-Toe Length X Width X Depth (cm): 11.6lhm4wwh6.4cm Skin Integrity Problem Comment: Wound vac removed. Of note, the backing from the drape had not been removed and therefore area was somewhat macerated as it didnt transpire. This may have contributed to the odor. Indu wound hair clipped with clippers to reduce pain during drape removal. Wound cleaned with ns and gauze. Indu wound skin prepped with barrier spray and wound edges draped. One piece of medium GranuFoam silver (for it's antimicrobial properties) cut to fit wound bed. However patient may use small black simplace at home. Three total pieces used, including one for trac pad. Wound draped and suction reapplied at -125mmHg with good seal. Patient tolerated procedure and had a significant amount of anxiety with the vac change, but requested a topical anesthetic for next vac change. sewer tapper to request. NORMAN Navarrete present in room. Estimated length of therapy will be 6 weeks. Right Lower Leg Pressure Injury Dressing Type: Tegaderm Film Site Measurement - Head-to-Toe Length X Width X Depth (cm): 0.6x1.5x0 Pressure Injury Stage: Stage 1, Harmonica Maker Related Pressure Injury (vac tubing) Pressure Injury Present on Admit: No Skin Integrity Problem Comment: Wound vac tubing had been draped onto patient's skin at inferior edge of wound.
--- NOTE | 2017-07-17 16:40 | ASMTCMCOM ---
CM Note CM Note Notes: Spoke w/RN, pt will dc home w/wound vac. Pt must use [facility] as they are in Network, Lisbeth at [facility] contacted and she is here assisting with paperwork. Spoke with pt and family, about homecare RN, wanted [facility] but staffing not available, referral sent to [facility]. Of note, it is unclear who is managing the wound vac at [facility], CM spoke w/Ciera at Dr Roberts's office, they state that they are not managing wound vac at [facility], that Dr Welsh's office is following. Advised Ciera that someone needs to follow pt and that they need to contact Dr Welsh's office if that's who will be managing the wound vac. PHILIPPE w/f Date Signed: 07/17/2017 04:40 PM Electronically Signed By:Mini Velazquez RN
--- NOTE | 2017-07-17 16:59 | PCMIDPN ---
Assessment/Plan: Assessment: Right lower extremity infected hematoma/seroma. E coli and Enterobacter growing in operative culture. Currently the patient received 24 hours postoperatively of Ancef. Will continue this monotherapy overnight. The goal is to get better pain control. Will plan for discharge tomorrow on oral Keflex 500 mg 4 times daily. Follow-up in office in 1 week after discharge. Plan: 1. Continue IV cefazolin. 2. Follow appearance of leg. 3. Probable discharge tomorrow. Transition IV antibiotics to oral Keflex 500 mg 4 times daily. Total course of 14 days. 07/17/17 16:56 Subjective: Patient has just finished with his 1st wound VAC change. He notes how incredibly painful that experience was. Denies any fevers or chills. On the positive side notes that his right lower extremity has reduced in size significantly since the latest surgery. Objective: Cefazolin # 2 Vital Signs Temp Pulse Resp BP Pulse Ox 36.9 C 57 L 14 118/68 92 07/17/17 08:00 07/17/17 08:00 07/17/17 08:00 07/17/17 08:00 07/17/17 08:00 07/16/17 07/17/17 07/18/17 05:59 05:59 05:59 Intake Total 1100 Balance 1100 - Physical Exam General Appearance: WD/WN, alert, no apparent distress, non-toxic Respiratory: lungs clear, normal breath sounds, No respiratory distress Cardiac/Chest: regular rate, rhythm, No tachycardia Extremities: No non-tender, No normal inspection (Right lower extremity with open anterior tipton wound. Vac dressing intact. Minimal erythema surrounding. Pedal edema decreased on the right side significantly since preop time.) Skin: normal color, warm/dry, No rash Neuro/Psych: alert, normal mood/affect, oriented x 3 ICD10 Worksheet Patient Problems: Problems Problem Status Onset Hematoma of leg Acute Hypoxia Acute Primary localized osteoarthritis of left hip Acute
[2017-07-17] MEDS ORDERED: METHOCARBAMOL 750 MG TAB PO ONE (18:15)
[2017-07-17] MEDS: IBUPROFEN 200 MG TAB PO PRN (20:06)
[2017-07-18] MEDS: IBUPROFEN 200 MG TAB PO PRN ×3 (02:01→12:47)
[2017-07-18] MEDS: ceFAZolin 2 GM/DEXTROSE 100 ML IV SCH ×2 (06:21→13:41)
[2017-07-18] MEDS: oxyCODONE IR 5 MG TAB PO PRN ×4 (07:24→15:50)
[2017-07-18 08:25] VITALS: BP 142/70; PULSE 64; RESP 20; TEMP 97.9; O2SAT 90
[2017-07-18] MEDS: CITALOPRAM 20 MG TAB PO SCH (09:11)
--- NOTE | 2017-07-18 09:13 | SOAPPROG ---
SOAP Progress Note Assessment/Plan: Assessment: Right leg infected hematoma status post I&D by Dr. Roberts on 07/15/17 Plan: Antibiotics per ID: continue IV and D/C on Keflex 500mg QID x 14 days post op Wound vac in place, vac changed yesterday 07/17 Pain medicine prn PT/OT WBAT of BLE D/C pending ID Ortho stable Subjective: 76 year old male post op day #3 from a right leg infected hematoma I&D and VAC placement. Pain is controlled. Pt denies any f/c/n/v. He also denies any new onset n/t, as well as post calf pain, cp or sob. Objective: Vital Signs Temp Pulse Resp BP Pulse Ox 36.6 C 64 20 142/70 H 90 L 07/18/17 08:00 07/18/17 08:00 07/18/17 08:00 07/18/17 08:00 07/18/17 08:00 07/17/17 07/18/17 07/19/17 05:59 05:59 05:59 Intake Total 1100 1213 Balance 1100 1213 Physical exam of the right lower extremity: intact wood vac, with mild erythema under the dressing. Ecchymosis of the Righ ankle and foot, no significant change since yesterday. Pt is able to move ankle/foot/toes well. Post calves NTTP, no palpable vascular cords, neg Jennifer's bilat. DNVI BLE. ICD10 Worksheet Patient Problems: Problems Problem Status Onset Hematoma of leg Acute Hypoxia Acute Primary localized osteoarthritis of left hip Acute
[2017-07-18] MEDS ORDERED: LIDOCAINE HCL 4% TOPICAL SOLN 50ML TP PRN (09:24)
--- NOTE | 2017-07-18 13:37 | WOCRNPDOC ---
WOCRN Advanced Assessment Note - Skin Integrity Problem, Advanced Assess Right Lower Leg Dressing Type: Black Vac Foam (x3), Wound Vac Dressing Description: Clean/Dry, Not Intact Exudate Amount: Moderate Integumentary Issue Intervention: Dressing Changed Clarita Wound Tissue: Erythema, Shiny Clariat Wound Swelling: Severe Wound Bed Constitution: Undermining Site Odor: Very Strong, Musky, Foul Skin Integrity Problem Comment: Vac dressing had failed along inferior portion. Also vac dressing needed to be changed as patient was D/Cing today and needed to go home with an [facility] vac. Dressing taken down and the wound was noted to have a much stronger odor and clarita wound skin had increased erythema from yesterday. Wound bed was treated with 4% liquid lidocaine prior to foam removal which helped patient. Vashe wound cleanser was placed in wound bed and allowed to soak for [address] Levi was notified and then was found to be not in the hospital today, at which point Dr. Gallardo was consulted. Patient covered with moist to dry dressing.
--- NOTE | 2017-07-18 14:36 | PDIAF ---
- Diagnosis Code Status: Full Code - Medication Management Discharge Medications: Medications to Continue on Transfer Citalopram [CeleXA 20 MG] 20 mg PO DAILY 07/15/17 [Last Taken 07/14/17] Diazepam [Valium 2 MG (*)] 2 mg PO Q4 PRN 07/15/17 [Last Taken 07/14/17] Herbals/Supplements -Info Only 1 each PO DAILY 07/15/17 [Last Taken Unknown] Ibuprofen [Advil] 200 mg PO Q4 PRN 07/15/17 [Last Taken 07/15/17] traMADol [Ultram 50 mg (*)] 50 mg PO Q4 07/15/17 [Last Taken 07/14/17] Amoxicillin/Clavulanate Pot [Augmentin 875 MG TAB (*)] 875 mg PO BID #14 tab [Last Taken Unknown] Lidocaine 4% [Anecream 4% Cream (*)] 1 darlyn TP QID PRN #1 btl 07/18/17 [Last Taken Unknown] oxyCODONE IR [Oxycodone Ir (*)] 5 - 10 mg PO Q3HRS PRN #30 tab 07/18/17 [Last Taken Unknown] Discharge Medications: Refer to the Discharge Home Medication list for PRN reason. - Orders Services needed: Home Care, Registered Nurse Home Care Face to Face: I certify that this patient was under my care and that I had the required [id number] encounter meeting the encounter requirements on the discharge day. My findings support the fact that the patient is homebound as defined in Home Care Face to Face Continued: CMS Chapter 7 Medicare Benefits Manual 30.1.1 , The condition of the patient is such that there exists a normal inability to leave home and consequently, leaving home would require a considerable and taxing effort. Diet Recommendation: no restrictions on diet Diet Texture: Regular Texture Diet Wound Care Instructions: per wound vac instructions - Follow Up Care Current Providers and Referrals: Delonte Roberts MD [Medical Doctor] - Taiwo Islas MD [Primary Care Provider] - As per Instructions
--- NOTE | 2017-07-18 14:36 | PDDCSUM ---
Discharge Summary Discharge Summary: Dates of service 07/15-07/17/17 consultation: orthopedics, ID procedures: incision and drainage of hematoma, wound vac placement Discharge dx: 76 yo M with hx of recent compartment syndrome s/p compartment release and drainage of hematoma presenting with infected hematoma # infected hematoma: s/p surgical drainage and wound vac placement. Initial culture data showing e coli and enterobacter. initially treated with ancef and transitioned to augmentin for dc, will f/u with wound clinic # recent compartment syndrome: as above, doing well, ambulating well # anxiety/mood d/o: continue citalopram/valium per home routine dc home f/u with ortho/ID > 35 minutes spent in dc, more than half in coordination fo care
--- NOTE | 2017-07-18 15:33 | ASMTCMCOM ---
CM Note CM Note Notes: Wound vac from [facility] delivered, paperwork signed by CRISTIAN HOLGUIN and given to Lisbeth at [facility]. Lisbeth here to educate pt on wound vac and [facility] notified and faxed. Pt to f/u at wound care clinic on Saturday at 9am. Date Signed: 07/18/2017 03:33 PM Electronically Signed By:Mini Velazquez RN
--- NOTE | 2017-07-18 17:47 | ASDISCHSUM ---
Discharge Information Plan Status:Home with Home Health Medically Cleared to Leave: Discharge Date:07/18/2017 04:10 PM D/C Disposition:Home Health Service ADT D/C Disposition:Home, Routine, Self-Care Projected Discharge Date:07/18/2017 11:00 AM Transportation at D/C:Family Discharge Delay Reason: Follow-Up Date:07/18/2017 11:00 AM Discharge Slot: Final Diagnosis: Placement Information Referral Type:*Home Health Care Services Referral ID:[id number] Provider Name:[facility] ([facility]) Address 1:[address] [address] Address 2: City:[place] Selection Factors: State:[place] Patient Contact Information Contact Name:ZANA Relationship: Address:[address] City:[place] Alternate Phone: State/Zip Code:[place] [address] Email: Financial Information Financial Class:Medicare Advantage Plans Primary Plan Desc:ALEXANDRA GREGORY MEDICARE Primary Plan Number:[id number] Secondary Plan Desc: Secondary Plan Number: Assessment Information [facility] CM Progress Note CM Note CM Note Notes: Pt had I and D for infected hematoma wound vac placed. OT/PT clear pt for home. Pt currently on IV antibiotics, blood cultures pending. Pt may need wound vac and/or IV antibiotics at d/c, case management to follow. Date Signed: 07/16/2017 02:28 PM Electronically Signed By:NATALEE Cooper BC CM Progress Note CM Note CM Note Notes: Spoke w/RN, pt will dc home w/wound vac. Pt must use [facility] as they are in Network, Lisbeth at [facility] contacted and she is here assisting with paperwork. Spoke with pt and family, about homecare RN, wanted [facility] but staffing not available, referral sent to [facility]. Of note, it is unclear who is managing the wound vac at [facility], CM spoke w/Ciera at Dr Roberts's office, they state that they are not managing wound vac at [facility], that Dr Welsh's office is following. Advised Ciera that someone needs to follow pt and that they need to contact Dr Welsh's office if that's who will be managing the wound vac. CM w/f Date Signed: 07/17/2017 04:40 PM Electronically Signed By:Mini Velazquez RN [facility] CM Progress Note CM Note CM Note Notes: Wound vac from [facility] delivered, paperwork signed by CRISTIAN HOLGUIN and given to Lisbeth at [facility]. Lisbeth here to educate pt on wound vac and [facility] notified and faxed. Pt to f/u at wound care clinic on Saturday at 9am. Date Signed: 07/18/2017 03:33 PM Electronically Signed By:Mini Velazquez RN Intervention Information Intervention Type:*PYLE-Signed Date of Service:07/16/2017 09:46 AM Patient Type:Observation Staff Member:Gwen Castillo Hours: Discipline: Severity: Comment:
--- NOTE | 2017-07-18 18:05 | PCMIDPN ---
Assessment/Plan: Assessment/Plan: * Right lower extremity infected hematoma/seroma s/p incision and drainage with polymicrobial cultures: Overall clinical improvement post debridement. Lower extremity most compatible with active cellulitis. Culture show growth of E coli , Enterobacter, and anaerobic caron. Will treat with 7 additional days of Augmentin. Continue wound VAC therapy as outpatient. Will have patient [facility]. Side effects of Augmentin reviewed with patient. 07/18/17 18:01 Subjective: Patient complains of erythema over right lower extremity after tape removed and hair clipped yesterday. Objective: Vital Signs Temp Pulse Resp BP Pulse Ox 36.6 C 64 20 142/70 H 90 L 07/18/17 08:00 07/18/17 08:00 07/18/17 08:00 07/18/17 08:00 07/18/17 08:00 07/17/17 07/18/17 07/19/17 05:59 05:59 05:59 Intake Total 1100 1213 400 Balance 1100 1213 400 Cefazolin # 3 Culture showing growth of E coli, Enterobacter cloacae, and anaerococcus - Physical Exam General Appearance: alert, no apparent distress EENT: No scleral icterus Extremities: inflammation (Right lower extremity wound bed with some mild necrosis along lateral margin; no purulence present; no odor present at time of examination; faint erythema over large portion of anterior tipton with some peeling skin at margins consistent with resolving cellulitis) Lymphatic: other (No lymphangitis right lower extremity) ICD10 Worksheet Patient Problems: Problems Problem Status Onset Hematoma of leg Acute Hypoxia Acute Primary localized osteoarthritis of left hip Acute
== END 2017-07-18 16:10 | disposition home health service (06) | DRG 940 ==
LOC: INTOOBSV 16:29 → F3N 17:55 → OBSVTOIN 07-16 15:35 → F3E 07-17 09:55
PROVIDERS: ADMIT Internal Medicine; ATTEND Internal Medicine
PROC: 0HBKXZZ Excision of Right Lower Leg Skin, External Approach (ICD-10-PCS; principal; 2017-07-16)
PROC: 0H9KXZZ Drainage of Right Lower Leg Skin, External Approach (ICD-10-PCS; principal; 2017-07-16)
PROC: 2W1QX7Z Compression of Right Lower Leg using Intermittent Pressure Device (ICD-10-PCS; principal; 2017-07-16)
PROC: 3E1038Z Irrigation of Skin and Mucous Membranes using Irrigating Substance, Percutaneous Approach (ICD-10-PCS; principal; 2017-07-16)
DX: T79.8XXD Other early complications of trauma, subsequent encounter (principal); L03.115 Cellulitis of right lower limb; B96.20 Unspecified Escherichia coli [E. coli] as the cause of diseases classified elsewhere; B95.2 Enterococcus as the cause of diseases classified elsewhere; F41.9 Anxiety disorder, unspecified; N40.0 Benign prostatic hyperplasia without lower urinary tract symptoms; K21.9 Gastro-esophageal reflux disease without esophagitis; K50.90 Crohn's disease, unspecified, without complications; Z98.1 Arthrodesis status; Z87.891 Personal history of nicotine dependence; Z96.642 Presence of left artificial hip joint
CPT/HCPCS: 97116-GP; 97161-GP; 97165-GO; 97530-GP; G8987-GO-CI; G8988-GO-CI; G8989-GO-CI; J0690; J1170; J2250; J2704; J3010

== ENCOUNTER → 2017-08-08 | Outpatient (CLI) | payer OTHER | LOC: FIMAGING 11:33 | PROVIDERS: ATTEND Neurological Surgery | DX: Z98.1 Arthrodesis status (principal) ==

== ENCOUNTER → 2017-11-18 | Outpatient (CLI) | payer OTHER | LOC: FIMAGING 07:31 | PROVIDERS: ATTEND Internal Medicine Infectious Disease | DX: L97.811 Non-pressure chronic ulcer of other part of right lower leg limited to breakdown of skin (principal) ==

== ENCOUNTER → 2018-02-17 | Outpatient (CLI) | payer OTHER | LOC: FCPNEURO 21:00 | PROVIDERS: ATTEND Psychiatry & Neurology Sleep Medicine | DX: G47.33 Obstructive sleep apnea (adult) (pediatric) (principal); G47.39 Other sleep apnea ==

== ENCOUNTER → 2018-03-31 | Outpatient (CLI) | payer OTHER | LOC: FIMAGING 15:03 → FLAB 15:03 → EDSTATUS 15:10 | PROVIDERS: ATTEND Physician Assistant Surgical | DX: M50.320 Other cervical disc degeneration, mid-cervical region, unspecified level (principal); Z98.1 Arthrodesis status ==

== ENCOUNTER → 2018-04-02 | Outpatient (CLI) | payer OTHER | LOC: FIMAGING 08:26 | PROVIDERS: ATTEND Physician Assistant Surgical | DX: M43.22 Fusion of spine, cervical region (principal); M50.320 Other cervical disc degeneration, mid-cervical region, unspecified level ==

== ENCOUNTER → 2018-05-12 | Outpatient (CLI) | payer OTHER ==
[~2018-05-12] MED LIST: IOPAMIDOL (ISOVUE-300) 100 ML BTL ONE
== END ==
LOC: FIMAGING 14:10
PROVIDERS: ATTEND Surgery
DX: K44.9 Diaphragmatic hernia without obstruction or gangrene (principal); K57.30 Diverticulosis of large intestine without perforation or abscess without bleeding; Z90.49 Acquired absence of other specified parts of digestive tract
CPT/HCPCS: 74177; Q9967

== ENCOUNTER 2018-07-05 06:27 | Emergency (ER) | payer OTHER ==
--- NOTE | 2018-07-05 07:17 | EDPHY ---
H & P Stated Complaint: LLE SWELLING Time Seen by Provider: 07/05/18 06:50 HPI/ROS: Chief Complaint: Left leg pain and swelling HPI: 77-year-old male presenting with pain in his left calf swelling. 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 He did sustain an abrasion to his leg but did not think it was significant. He has had worsening pain and swelling in his left medial calf since that time. He takes ibuprofen daily. No other blood thinning medications. No recent periods of immobility. No chest pain or shortness of breath. Denies any other injuries. Pain is about a 4/10. ROS: 10 systems were reviewed and were negative except those elements noted in the HPI. PMH: Crohn's disease Social History: No smoking, no alcohol, no recreational drug use Family History: non-contributory Physical Exam: Gen: Awake, Alert, No Distress HEENT: Nose: no rhinorrhea Eyes: PERRLA, EOMI Mouth: Moist mucosa Neck: Supple, no JVD Chest: nontender, lungs clear to auscultation Heart: S1, S2 normal, no murmur Abd: Soft, non-tender, no guarding Back: no CVA tenderness, no midline tenderness Ext: no edema, non-tender patient's left lower leg is edematous, approximately 2 cm greater in diameter than the right. There are several small abrasions. There is a palpable hematoma on the medial calf with moderate tenderness. Distally he has got normal perfusion with 2+ DP and PT pulses. Capillary refills less than 2 sec. Sensations intact in all dermatomes. no rash Neuro: CN II-XII intact, Sensation grossly intact, Strength 5/5 in bilateral upper and lower extremities - Personal History Current Tetanus Diphtheria and Acellular Pertussis (TDAP): Yes Tetanus Vaccine Date: 3 years ago - Medical/Surgical History Hx Asthma: No Hx Chronic Respiratory Disease: No Hx Diabetes: No Hx Cardiac Disease: No Hx Renal Disease: No Hx Cirrhosis: No Hx Alcoholism: No Hx HIV/AIDS: No Hx Splenectomy or Spleen Trauma: No Other PMH: PSHx: left total hip replacement, C3-5 ant. hematoma surgery r lower leg 06/13. PMHx: - Social History Smoking Status: Former smoker Constitutional: Initial Vital Signs Temperature (C) 36.6 C 07/05/18 06:33 Heart Rate 53 L 07/05/18 06:33 Respiratory Rate 16 07/05/18 06:33 Blood Pressure 195/96 H 07/05/18 06:33 O2 Sat (%) 95 07/05/18 06:33 O2 Delivery Mode Room Air Allergies/Adverse Reactions: piroxicam [From Feldene] Allergy (Unknown, Verified 02/07/16 09:59) Sulfa (Sulfonamide Antibiotics) Allergy (Unknown, Verified 11/30/16 11:25) Rash cat dander Allergy (Verified 11/30/16 11:25) house dust Allergy (Verified 11/30/16 11:25) tetracycline Allergy (Verified 12/04/16 11:58) Home Medications: Medication Instructions Recorded Citalopram [CeleXA 20 MG] 20 mg PO DAILY 07/15/17 Medical Decision Making - Diagnostics Imaging Results: Ultrasound is negative for DVT or superficial thrombus. There is a hematoma noted. Interpreted by Dr. Mcbride. Imaging: Discussed imaging studies w/ call center operations manager Radiologist ED Course/Re-evaluation: 77-year-old with swelling in his right calf. He does have a hematoma in overlying abrasion. Ultrasound is negative for DV T. Patient has been given the appropriate instructions for ice and analgesia. He will follow up with primary care physician. Departure - Departure Disposition: Home, Routine, Self-Care Clinical Impression: Hematoma Condition: Good Instructions: Hematoma (ED) Additional Instructions: You may take acetaminophen alternating with ibuprofen as needed for pain. May apply ice for 15 min of every hour while awake. Follow up with your primary care physician in 3-4 days for any concerns. Referrals: Taiwo Islas MD [Primary Care Provider] - As per Instructions
[2018-07-05 08:54] VITALS: BP 187/101
== END 2018-07-05 08:55 | disposition home or self-care (01) ==
DX: S80.12XA Contusion of left lower leg, initial encounter (principal); Y92.009 Unspecified place in unspecified non-institutional (private) residence as the place of occurrence of the external cause; W07.XXXA Fall from chair, initial encounter; Z96.642 Presence of left artificial hip joint

== ENCOUNTER 2018-07-11 12:12 | Emergency (ER) | payer OTHER ==
[2018-07-11] MEDS ORDERED: NS 500 ML IV ONE (13:04)
--- NOTE | 2018-07-11 13:41 | EDPHY ---
H & P Time Seen by Provider: 07/11/18 12:32 HPI/ROS: HPI Left-sided facial droop. 77-year-old male by private vehicle with his . This patient reports that he was at work earlier this morning when a co-worker noticed that the left side of his face was drooping. He is not sure the exact time that this started happening. He thinks it was about 2 hr ago. He denies any other associated signs or symptoms. Please see review of systems below. 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 He cannot recall which side. 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 He just recently had the sutures removed. There were no complications from this procedure. ROS: Constitutional: No fever, no chills. As above. Eyes: No discharge. No changes in vision. ENT: No sore throat. No nasal congestion or rhinorrhea. Respiratory: No cough. No shortness of breath. Cardiac: No chest pain, no palpitations. Gastrointestinal: No abdominal pain, no vomiting, no diarrhea. Genitourinary: No hematuria. No dysuria or increased frequency with urination. Musculoskeletal: No back pain. No neck pain. No myalgias or arthralgias. Skin: No rashes. Neurological: No headache. As above. Past medical history: Left total hip replacement, C3 through C5 surgery, Soria' s palsy. As above. Social history: He is here with his . Denies smoking. No alcohol. Physical Exam: General Appearance: Alert, no distress. This patient is responding to questions appropriately and in full sentences. This patient appears well- hydrated and well-nourished. Eyes: Pupils are asymmetric. The left pupil is about a 1 mm to 2 mm greater in dilation versus the right side. Asymmetric lower lid lag verses the right side ENT, Mouth: Mucous membranes are moist. The pharyngeal tissues are unremarkable. No edema or swelling. No asymmetry suggestive of abscess. No erythema or exudates. Respiratory: There are no retractions, lungs are clear to auscultation with good air movement bilaterally. Cardiovascular: Regular rate and rhythm. No murmur. Gastrointestinal: Abdomen is soft and nontender, no masses, bowel sounds normal. No focal tenderness at McBurney's point. No Galarza sign. Neurological: Motor sensory function is grossly intact. Cranial nerves are normal except for an upper and lower facial motor paralysis. Gait is normal. Skin: Warm and dry, no rashes. Musculoskeletal: Neck is supple and nontender. Extremities are symmetrical. All joints range without pain or impingement. Psychiatric: No agitation. No depression. Database: EKG: EKG time is 1:11 p.m.; EKG shows a narrow complex normal sinus rhythm with a ventricular rate of 58. The ND, QRS, QT intervals are within normal limits. There are no ST-T wave changes indicative of ischemic or injury pattern. No evidence of right heart strain. Interpreted by me. Imaging: MRI of brain without contrast: Age-related changes only. No significant change from prior study in 2016. Results were discussed with staff radiologist Dr. Braxton Cain. MRA of brain: Negative. Results were discussed with staff radiologist Dr. Braxton Cain. Procedures: Emergency department course: Triage vital signs reviewed. He is moderately hypertensive. Vital signs otherwise normal. IV was placed. He was placed on a monitor. EKG obtained and reviewed by myself. Patient's presentation is consistent with likely Soria' s palsy. However the asymmetric dilation of the left pupil is concerning. 1:05 p.m., spoke with on-call neurologist Dr. Art Hansen. Case discussed in detail with him. He advises an MRA of the brain and an MRI without contrast of the brain. If normal he feels the patient is safe for discharge on 7 days of prednisone at 60 mg daily and follow-up in his office early next week for re- evaluation. The patient was given his 1st dose of prednisone at 60 mg in the emergency department today. 2:20 p.m., patient re-evaluated. Results of his MRI and MRA discussed with him and family. Repeat neurologic Assessment is unchanged from above. Both these studies are reassuring a central etiology is very unlikely. I will treat the patient as a Soria's palsy as above. He is in agreement with this plan. Follow- up and return to emergency department precautions have been reviewed with him and his family. He will see Dr. Hansen of the neurology service early next week for re-evaluation. Return to emergency department precautions have been reviewed with him and family. All of their questions were answered. The patient was discharged in good condition with family. Differential Diagnosis: The differential diagnosis on this patient includes but is not limited to Soria' s palsy. CVA, central etiology unlikely. This represents a partial list of diagnoses considered. These considerations are based on history, physical exam , past history, reassessment and diagnostic testing. Smoking Status: Former smoker Constitutional: Initial Vital Signs Temperature (C) 36.7 C 07/11/18 12:16 Heart Rate 60 07/11/18 12:16 Respiratory Rate 17 07/11/18 12:16 Blood Pressure 170/45 H 07/11/18 12:16 O2 Sat (%) 95 07/11/18 12:16 O2 Delivery Mode Room Air Allergies/Adverse Reactions: piroxicam [From Feldene] Allergy (Unknown, Verified 07/11/18 12:15) Sulfa (Sulfonamide Antibiotics) Allergy (Unknown, Verified 07/11/18 12:15) Rash cat dander Allergy (Verified 07/11/18 12:15) house dust Allergy (Verified 07/11/18 12:15) tetracycline Allergy (Verified 07/11/18 12:15) Home Medications: Medication Instructions Recorded Citalopram [CeleXA 20 MG] 20 mg PO DAILY 07/15/17 predniSONE [prednisone 20mg (RX)] 60 mg PO DAILY #18 tab 07/11/18 Medical Decision Making - Data Points Medications Given: Discontinued Medications Sodium Chloride (Ns) 500 mls @ 0 mls/hr IV ONCE ONE; Wide Open PRN Reason: Protocol Stop: 07/11/18 13:05 Last Admin: 07/11/18 14:34 Dose: 500 mls Prednisone (Prednisone) 60 mg PO EDNOW ONE Stop: 07/11/18 14:27 Last Admin: 07/11/18 14:48 Dose: 60 mg Point of Care Test Results: Chemistry 07/11/18 13:19 POC Sodium 142 mEq/L mEq/L (135-145) POC Potassium 4.0 mEq/L mEq/L (3.3-5.0) POC Chloride 102 mEq/L mEq/L (97-110) POC BUN 22 mg/dL mg/dL (7-23) POC Creatinine 0.8 mg/dL mg/dL (0.7-1.3) POC Glucose 109 mg/dL H mg/dL (70-100) ISTAT H&H 07/11/18 13:19 POC Hgb 16.7 gm/dL gm/dL (13.7-17.5) POC Hct 49 % % (40-51) Departure - Departure Disposition: Home, Routine, Self-Care Clinical Impression: Sorai's palsy, Anisocoria Condition: Good Instructions: Soria Palsy (ED) Additional Instructions: Read and follow provided instructions. Follow-up with Neurology, Dr. Art Hansen, early next week for re-evaluation and further management. I discussed your case with him today in the emergency department. Call his office at 8:30 a.m. On Saturday for appointment time. Explain this is for an emergency department follow-up. Take medication as prescribed through entire course of treatment. Apply artificial tears to your left every 15 min while awake. Tape your left closed when sleeping. Return to the emergency department for worsening symptoms or other serious concerns. Referrals: Art Hansen DO [Medical Doctor] - As per Instructions Prescriptions: predniSONE [prednisone 20mg (RX)] 60 mg PO DAILY #18 tab
[2018-07-11] MEDS ORDERED: predniSONE 20 MG TAB PO ONE (14:26)
[2018-07-11 14:56] VITALS: BP 179/93
--- NOTE | 2018-07-11 14:59 | CPEKG ---
Test Reason : OPEN Blood Pressure : / mmHG Vent. Rate : 058 BPM Atrial Rate : 057 BPM P-R Int : 139 ms QRS Dur : 094 ms QT Int : 478 ms P-R-T Axes : 007 009 052 degrees QTc Int : 470 ms Sinus rhythm Confirmed by Farzaneh Bobo ([id number]) on 07/11/2018 2:59:20 PM Referred By: Confirmed By:Farzaneh Bobo
== END 2018-07-11 14:55 | disposition home or self-care (01) ==
DX: G51.0 Bell's palsy (principal); H57.02 Anisocoria; E86.9 Volume depletion, unspecified
CPT/HCPCS: 70544; 70551; 93005; 99285; J7512; 82435-PO; 82565-PO; 82947-PO; 84132-PO; 84295-PO; 84520-PO; 85014-PO